=== PATIENT | female | born 1945 | race Caucasian/White ===

== ENCOUNTER 2016-11-25 09:03 | Emergency (ER) | payer MEDICARE ==
[2016-11-25 10:02] VITALS: BP 142/63
[2016-11-25] MEDS ORDERED: Ondansetron INJ* 2 MG/ML VIAL IV ONE (10:15)
[2016-11-25] MEDS ORDERED: NS 0.9% 1000 ML* 1,000 ML IV ONE (10:16)
--- NOTE | 2016-11-25 10:21 | UC ---
Abdominal Pain Female HPI - HPI Summary HPI Summary: 71 female presents accompanied by her complaining of nausea and vomiting since 3am this morning 11/25/16. Patient states she thinks she has vomited about 15-20 times with the last few hours being worse. She also is experiencing dry heaves. She denies any blood but has been tasting "bile and salt" after vomiting. Patient denies diarrhea at this time. LBM was this morning and was normal. She has not recently had any cold like symptoms however she babysat her grandson who stayed home from school on Wednesday due to a stomach bug. She has unable to eat or drink and feels as though she is a little dry and dehydrated. Denies going out to eat or having any food out of the ordinary over the past few days. She does not think this is food poisoning. Patient does not have any PMHx besides a pacemaker. Denied fever/chills, CHF, abdominal pain, bladder/bowel difficulty, chest pain, and difficulty breathing. Does not drink alcohol. - History of Current Complaint Chief Complaint: UCGI Stated Complaint: VOMITING Time Seen by Provider: 11/25/16 10:06 Hx Obtained From: Patient, Family/Rat Farmer - ?: No Onset/Duration: Sudden Onset - since 3 am this morning Timing: Constant Severity Initially: Moderate Severity Currently: Severe Location: Epigastric - not pain, just nausea Radiates: No Character: Other - nausea Aggravating Factor(s): Food Alleviating Factor(s): Nothing Associated Signs and Symptoms: Positive: Dizzy, Back Pain - straining from shoveling and vomiting/dry heaving, Decreased Appetite, Nausea, Vomiting. Negative: Diaphoresis, Fever, Cough, Chest Pain, Constipation, Blood in Stool, Urinary Symptoms, Diarrhea Allergies/Adverse Reactions: Allergies Allergy/AdvReac Type Severity Reaction Status Date / Time Sulfa Antibiotics Allergy Intermediate Rash Verified 11/25/16 10:02 Bee Venom Allergy Difficulty Unverified 11/25/16 10:02 Breathing/Wheezing CONTRAST AdvReac Unknown Rash Uncoded 11/25/16 10:02 PMH/Surg Hx/FS Hx/Imm Hx Endocrine History Of: Denies: Diabetes Cardiovascular History Of: Reports: Cardiac Disorders - pacemaker, Hypertension - CONTROLLED WITH MEDICATION Denies: Pacemaker/ICD, Myocardial Infarction Respiratory History Of: Denies: COPD - POSSIBLE MILD COPD d/t SECONDARY SMOKE EXPOSURE, Asthma GI/ History Of: Denies: Kidney Stones, Renal Disease Neurological History Of: Comment Only: CVA - HX MINI STROKES Cancer History Of: Denies: Breast Cancer - Surgical History Surgical History: Yes Surgery Procedure, Year, and Place: 3 C-SECTIONS,TOTAL HYSTERECTOMY, GALLBLADDER ,HERNIA,CATARACTS. TONSILECTOMY - as a child. pacemaker - Social History Alcohol Use: Rare Substance Use Type: None Smoking Status (MU): Never Smoked Tobacco Household Exposure Type: Cigarettes - Immunization History Most Recent Influenza Vaccination: FALL 2013 Review of Systems Constitutional: Chills, Fatigue Skin: Negative Eyes: Negative ENT: Negative Respiratory: Negative Cardiovascular: Negative Gastrointestinal: Vomiting Genitourinary: Negative Motor: Negative Neurovascular: Negative Musculoskeletal: Negative Neurological: Negative Psychological: Negative All Other Systems Reviewed And Are Negative: Yes Physical Exam Triage Information Reviewed: Yes Appearance: No Pain Distress, Well-Nourished, Ill-Appearing Vital Signs: Initial Vital Signs Temp 95.0 F 11/25/16 09:57 Pulse 72 11/25/16 09:57 Resp 16 11/25/16 09:57 BP 142/63 11/25/16 09:57 Pulse Ox 100 11/25/16 09:57 BP slightly elevated however patient has been vomiting Vital Signs Reviewed: Yes Eyes: Positive: Conjunctiva Clear ENT: Positive: Normal ENT inspection, Hearing grossly normal, Pharynx normal - tongue appears dry, TMs normal. Negative: Pharyngeal erythema, Nasal congestion , Nasal drainage Dental Exam: Normal Neck: Positive: Supple, Nontender, No Lymphadenopathy Respiratory: Positive: Chest non-tender, Lungs clear, Normal breath sounds, No respiratory distress Cardiovascular: Positive: RRR, Pulses Normal, Brisk Capillary Refill, Murmur:Sys :Grade _?_/ - pacemaker present, soft systolic murmur heard Abdomen Description: Positive: Nontender, No Organomegaly, Soft. Negative: Bruit, CVA Tenderness (R), CVA Tenderness (L), Distended, Guarding Bowel Sounds: Positive: Present Musculoskeletal Exam: Normal Neurological Exam: Normal Psychological Exam: Normal Skin Exam: Normal Re-Evaluation - Re-Evaluation First Eval Re-Evaluation Time: 11:20 Change: Improved - patient was feeling much better and had stopped vomiting after IV zofran and fluids Abd Pain Female Course/Dx - Course Course Of Treatment: Was given IV Zofran 4 mg and 1 bag of fluids. Patient was feeling much better. The nausea and vomiting had stopped. Patient will be sent home with zofran to take and told to drink plenty of fluids as this illness is most likely viral. - Differential Dx/Diagnosis Differential Diagnosis: Bowel Obstruction, Constipation, Other - gastroenteritis Provider Diagnoses: Viral Gastroenteritis Discharge - Discharge Plan Condition: Improved Disposition: HOME Patient Education Materials: Gastroenteritis (ED), Acute Nausea and Vomiting ( ED) Additional Instructions: Take medication as prescribed for the next 3 days as symptoms persist. Drink plenty of fluids and stay well hydrated. You may also take OTC tylenol or Ibuprofen to help with pain and soreness. If symptoms worsen or do not improve please return to UC. Follow up with PCP is recommended.
== END 2016-11-25 12:00 | disposition home or self-care (01) ==
LOC: UCCORT 09:03
DX: A08.4 Viral intestinal infection, unspecified (principal); I10 Essential (primary) hypertension; Z95.0 Presence of cardiac pacemaker; Z98.49 Cataract extraction status, unspecified eye; Z88.2 Allergy status to sulfonamides; Z91.041 Radiographic dye allergy status
CPT/HCPCS: 96361; 96374; 99212; G0463; J2405

== ENCOUNTER 2017-01-02 10:46 | Emergency (ER) | payer MEDICARE ==
[2017-01-02 11:24] VITALS: BP 158/59
--- NOTE | 2017-01-02 11:50 | UC ---
Throat Pain/Nasal Keyur HPI - HPI Summary HPI Summary: c/o a sinus infection. She has more congestion on the right side than the left side. She has a sore throat. She says she has to have an antibiotic because she has asthma and COPD. [ End ] - History of Current Complaint Chief Complaint: UCRespiratory Stated Complaint: SORE THROAT,SINUS,COUGH Time Seen by Provider: 01/02/17 11:35 Hx Obtained From: Patient ?: No Onset/Duration: Gradual Onset Severity: Mild Cough: Productive Associated Signs & Symptoms: Positive: Wheezing, Sinus Discomfort, Nasal Discharge - Epiglottits Risk Factors Epiglottis Risk Factors: Negative - Allergies/Home Medications Allergies/Adverse Reactions: Allergies Allergy/AdvReac Type Severity Reaction Status Date / Time Sulfa Antibiotics Allergy Intermediate Rash Verified 01/02/17 11:25 Bee Venom Allergy Difficulty Unverified 01/02/17 11:25 Breathing/Wheezing PMH/Surg Hx/FS Hx/Imm Hx Previously Healthy: Yes Endocrine History Of: Denies: Diabetes Cardiovascular History Of: Reports: Cardiac Disorders - pacemaker, Hypertension Denies: Pacemaker/ICD, Myocardial Infarction Respiratory History Of: Reports: COPD - "mild", Asthma GI/ History Of: Denies: Kidney Stones, Renal Disease Neurological History Of: Comment Only: CVA - HX MINI STROKES Cancer History Of: Denies: Breast Cancer - Surgical History Surgical History: Yes Surgery Procedure, Year, and Place: 3 C-SECTIONS,TOTAL HYSTERECTOMY, GALLBLADDER ,HERNIA,CATARACTS. TONSILECTOMY - as a child. pacemaker - Social History Occupation: Retired Lives: With Family Alcohol Use: Rare Substance Use Type: None Smoking Status (MU): Never Smoked Tobacco Household Exposure Type: Cigarettes - Immunization History Most Recent Influenza Vaccination: [id number] Most Recent Tetanus Shot: unknown Most Recent Pneumonia Vaccination: pneumovac and prevnar Review of Systems Constitutional: Fatigue Skin: Negative Eyes: Negative ENT: Negative, Ear Ache, Nasal Discharge, Other - sinus pressure Respiratory: Shortness Of Breath, Cough Cardiovascular: Negative Gastrointestinal: Negative Genitourinary: Negative Motor: Negative Neurovascular: Negative Musculoskeletal: Negative Neurological: Negative Psychological: Negative All Other Systems Reviewed And Are Negative: Yes Physical Exam Triage Information Reviewed: Yes Appearance: Well-Appearing, No Pain Distress, Well-Nourished Vital Signs: Initial Vital Signs Temp 97.5 F 01/02/17 11:19 Pulse 68 03/04/17 11:19 Resp 14 01/02/17 11:19 BP 158/59 01/02/17 11:19 Pulse Ox 97 01/02/17 11:19 Vital Signs Reviewed: Yes Eye Exam: Normal ENT Exam: Normal Dental Exam: Normal Neck exam: Normal Neck: Positive: 1 Respiratory Exam: Normal Respiratory: Positive: Chest non-tender, Wheezing - b/l lower lobes. Negative: No accessory muscle use, Respiratory distress, Crackles, Rhonchi Cardiovascular Exam: Normal Musculoskeletal Exam: Normal Neurological Exam: Normal Psychological Exam: Normal Skin Exam: Normal Throat Pain/Nasal Course/Dx - Differential Dx/Diagnosis Differential Diagnosis/HQI/PQRI: Pharyngitis, Sinusitis, URI Provider Diagnoses: COPD Exacerbation Discharge - Discharge Plan Condition: Good Disposition: HOME Prescriptions: Benzonatate CAP* [Tessalon CAP*] 100 mg PO TID PRN #20 cap PRN Reason: Cough Doxycycline (Monohydrate) [Doxycycline Monohydrate] 100 mg PO BID #20 cap Methylprednisolone [Medrol Dosepak 4 MG*] 0 mg PO .SEE RAFAELA INSTRUCTION #1 tab Patient Education Materials: COPD (Chronic Obstructive Pulmonary Disease) (ED) Referrals: Kvng Mendiola MD [Primary Care Provider] - 3 Days
== END 2017-01-02 12:09 | disposition home or self-care (01) ==
LOC: UCCORT 10:46
DX: J44.1 Chronic obstructive pulmonary disease with (acute) exacerbation (principal); Z88.2 Allergy status to sulfonamides; Z95.0 Presence of cardiac pacemaker; I10 Essential (primary) hypertension; J45.909 Unspecified asthma, uncomplicated; Z90.49 Acquired absence of other specified parts of digestive tract; Z77.22 Contact with and (suspected) exposure to environmental tobacco smoke (acute) (chronic)
CPT/HCPCS: 99212; G0463

== ENCOUNTER 2017-02-09 16:49 | Emergency (ER) | payer MEDICARE ==
[2017-02-09 18:01] VITALS: BP 133/67
--- NOTE | 2017-02-09 18:13 | UC ---
Lower Extremity/Ankle HPI - HPI Summary HPI Summary: Patient tripped and fell, pain in the ankle and lower leg, cant bear full weight , swelling and bruising noted. - History of Current Complaint Chief Complaint: UCLowerExtremity Stated Complaint: LEFT ANKLE INJURY Time Seen by Provider: 02/09/17 18:06 Hx Obtained From: Patient ?: No Onset/Duration: Sudden Onset, Lasting Days Severity Initially: Severe Severity Currently: Severe Aggravating Factor(s): Standing, Ambulation, Nothing Alleviating Factor(s): Rest, Ice Able to Bear Weight: Yes - Risk Factors Gout Risk Factors: Negative - Allergies/Home Medications Allergies/Adverse Reactions: Allergies Allergy/AdvReac Type Severity Reaction Status Date / Time Sulfa Antibiotics Allergy Intermediate Rash Verified 02/09/17 18:00 Bee Venom Allergy Difficulty Verified 02/09/17 18:00 Breathing/Wheezing Home Medications: Home Medications Ibuprofen TAB* [Advil TAB*] 400 mg PO Q8H PRN 02/09/17 [History Confirmed ] metFORMIN* [Glucophage 500 MG TAB *] 500 mg PO TID 02/09/17 [History Confirmed 02/09/17] PMH/Surg Hx/FS Hx/Imm Hx Previously Healthy: Yes Endocrine History Of: Denies: Diabetes Cardiovascular History Of: Reports: Cardiac Disorders - pacemaker, Hypertension , Pacemaker/ICD Denies: Myocardial Infarction Respiratory History Of: Reports: COPD - "mild", Asthma GI/ History Of: Denies: Kidney Stones, Renal Disease Neurological History Of: Comment Only: CVA - HX MINI STROKES Cancer History Of: Denies: Breast Cancer - Surgical History Surgical History: Yes Surgery Procedure, Year, and Place: 3 C-SECTIONS,TOTAL HYSTERECTOMY, GALLBLADDER ,HERNIA,CATARACTS. TONSILECTOMY - as a child. pacemaker - Family History Known Family History: Positive: Cardiac Disease, Hypertension - Social History Alcohol Use: Rare Substance Use Type: None Smoking Status (MU): Never Smoked Tobacco Household Exposure Type: Cigarettes - Immunization History Most Recent Influenza Vaccination: [id number] Most Recent Tetanus Shot: unknown Most Recent Pneumonia Vaccination: pneumovac and prevnar Review of Systems Constitutional: Negative Skin: Negative Eyes: Negative ENT: Negative Respiratory: Negative Cardiovascular: Negative Gastrointestinal: Negative Genitourinary: Negative Motor: Negative Neurovascular: Negative Musculoskeletal: Arthralgia, Decreased ROM, Edema, Myalgia Neurological: Negative Psychological: Negative All Other Systems Reviewed And Are Negative: Yes Physical Exam Triage Information Reviewed: Yes Appearance: Well-Appearing, Well-Nourished, Pain Distress Vital Signs: Initial Vital Signs Temp 97.8 F 02/09/17 17:57 Pulse 76 02/09/17 17:57 Resp 16 02/09/17 17:57 BP 133/67 02/09/17 17:57 Pulse Ox 96 02/09/17 17:57 Vital Signs Reviewed: Yes Eye Exam: Normal Eyes: Positive: Conjunctiva Clear ENT Exam: Normal ENT: Positive: Hearing grossly normal, Pharynx normal, TMs normal Dental Exam: Normal Neck exam: Normal Neck: Positive: Supple, Nontender, No Lymphadenopathy Respiratory Exam: Normal Respiratory: Positive: Chest non-tender, Lungs clear, Normal breath sounds Cardiovascular Exam: Normal Cardiovascular: Positive: RRR, No Murmur Abdominal Exam: Normal Abdomen Description: Positive: Nontender, No Organomegaly, Soft Bowel Sounds: Positive: Present Musculoskeletal: Positive: Strength Limited @ - left ankle, ROM Limited @ - in dorsi and plantar flexion, Edema @ - over lateral maleolus, Other: - pain in lower leg with palpation Neurological Exam: Normal Neurological: Positive: Alert, Muscle Tone Normal Psychological Exam: Normal Skin Exam: Normal Skin: Positive: Other - bruising over left ankle Lower Extremity Course/Dx - Course Course Of Treatment: hx obtained, exam performed, meds reviewed, xray obtained, patient took ibuprofen prior to arrival. no acute fracture noted, fausto and gel splint applied. educated on RICE and recovery - Differential Dx/Diagnosis Differential Diagnosis/HQI/PQRI: Contusion, Dislocation, Fracture (Closed), Sprain, Strain Provider Diagnoses: left ankle sprain and strain Discharge - Discharge Plan Condition: Stable Disposition: HOME Patient Education Materials: Ankle Sprain (ED), Ankle Exercises (GEN) Additional Instructions: 1. Rest and elevated foot as much as possible the next 48 hours. 2. Use the Fausto wrap for swelling reduction. 3. Gel Splint for support. 4. Activity as tolerated in pain free range of motion. 5. continue with Ibuprofen and tylenol for pain.
--- NOTE | 2017-02-09 19:05 | RAD ---
INDICATION: Lateral ankle pain and swelling after fall COMPARISON: None. TECHNIQUE: 3 views of the left ankle were obtained. FINDINGS: On the AP and oblique views of the ankle there is an obliquely oriented line along the diaphysis of the left metatarsal metaphysis. Remaining visualized bones are intact and properly aligned. The ankle mortise is symmetric. IMPRESSION: POTENTIAL MINIMALLY DISPLACED FRACTURE OF THE LEFT FIFTH METATARSAL DESCRIBED ABOVE. PLEASE CORRELATE TO PHYSICAL EXAMINATION.
== END 2017-02-09 19:35 | disposition home or self-care (01) ==
LOC: UCCORT 16:49
DX: S93.402A Sprain of unspecified ligament of left ankle, initial encounter (principal); W01.0XXA Fall on same level from slipping, tripping and stumbling without subsequent striking against object, initial encounter; Y93.9 Activity, unspecified; Y92.9 Unspecified place or not applicable; I10 Essential (primary) hypertension; Z95.0 Presence of cardiac pacemaker; Z86.73 Personal history of transient ischemic attack (TIA), and cerebral infarction without residual deficits; Z90.49 Acquired absence of other specified parts of digestive tract; Z88.2 Allergy status to sulfonamides; Z77.22 Contact with and (suspected) exposure to environmental tobacco smoke (acute) (chronic)
CPT/HCPCS: 99213; G0463

== ENCOUNTER 2017-03-15 11:54 | Inpatient (IN) | payer MEDICARE ==
[2017-03-15 13:47] LABS: Hematocrit 45 % (35-47); Mean Corpuscular HGB Conc 34 g/dl (31-36); Mean Corpuscular Hemoglobin 31 pg (27-31); Mean Corpuscular Volume 92 fL (80-97); Mean Platelet Volume 7 um3 (7.4-10.4); Red Blood Count 4.84 10^6/ul (4.0-5.4); Red Cell Distribution Width 15 % (10.5-15); White Blood Count 11.8 10^3/ul (3.5-10.8)
[2017-03-15] MEDS ORDERED: NS 0.9% 1000 ML* 1,000 ML IV ONE (13:49)
[2017-03-15] MEDS ORDERED: Morphine INJ* 4 MG/ML 1 ML SYRINGE IV ONE (13:49)
[2017-03-15] MEDS ORDERED: Ondansetron INJ* 2 MG/ML VIAL IV ONE (13:49)
[2017-03-15 13:54] LABS: Urine Bilirubin Negative (Negative); Urine Glucose Negative (Negative); Urine Nitrite Negative (Negative)
[2017-03-15 14:02] LABS: BUN/Creatinine Ratio 13.3 (8-20); C Reactive Protein 46.19 mg/L (< 5.00); Calcium 9.6 mg/dL (8.6-10.3); EGFR African American 86.7 (>60); EGFR Non-African American 67.4 (>60); Globulin 2.7 g/dL (2-4); Potassium 3.7 mmol/L (3.5-5.0); Total Bilirubin 1.7 mg/dL (0.2-1.0); Total Protein 6.7 g/dL (6.4-8.9)
[2017-03-15] MEDS: NS 0.9% 1000 ML* 1,000 ML IV ONE ×2 (14:12→18:57)
[2017-03-15] MEDS ORDERED: Iohexol 300* (CONTRAST) 10 ML SDV IV ONE (15:57)
--- NOTE | 2017-03-15 16:19 | RAD ---
INDICATION: Lower abdominal pain COMPARISON: External CT April 26, 2014 TECHNIQUE: Axial source images were obtained from the hemidiaphragms to the symphysis pubis following administration of oral and intravenous contrast. 121 mL Omnipaque 300 was utilized. Coronal and sagittal reconstructed images were acquired. Lung bases: The lung bases are clear. The heart is enlarged. There is pacemaker artifact Liver: The liver is enlarged with findings of hepatic steatosis. There is focal fatty infiltration near the falciform ligament, unchanged. There is no ductal dilatation. Gallbladder: Cholecystectomy. Spleen: The spleen is normal in size. There are no masses. Pancreas: There is no focal pancreatic mass or ductal dilatation. Adrenal glands: There is no evidence of adrenal mass. Kidneys: The kidneys are normal in size and position. There are prompt nephrograms and there is prompt excretion bilaterally. There are no renal parenchymal masses. There is no evidence of nephrolithiasis. Adenopathy: There is no evidence of adenopathy by size criteria. Fluid collections: There is a small amount of free fluid in the dependent portion of the pelvis. Vessels:There are no significant atherosclerotic changes involving the aorta. There is no focal aneurysm. The iliac vessels are normal in caliber. The IVC appears normal. GI tract: The upper GI tract is unremarkable. There is liquid and formed stool throughout the colon perhaps with mild bowel wall edema of the distal sigmoid colon. There are scant diverticula. There is chronic mesenteric stranding Pelvic organs: There is hysterectomy. There is no adnexal mass. Bladder: There are no bladder masses. Abdominal and pelvic soft tissues: The extraperitoneal abdominal and pelvic soft tissues appear normal.. Osseous structures: There are no acute osseous findings. Other: None IMPRESSION: 1. LIQUID AND SOLID STOOL THROUGHOUT THE COLON WITH MESENTERIC STRANDING AND A SMALL AMOUNT OF FREE FLUID AT THE LEVEL OF THE DISTAL SIGMOID COLON. THE FINDINGS MAY BE RELATED TO A MILD COLITIS. SIMILAR FINDINGS WERE PRESENT PREVIOUSLY. 2. HEPATOMEGALY WITH HEPATIC STEATOSIS. 3. CHOLECYSTECTOMY. HYSTERECTOMY.
[2017-03-15] MEDS ORDERED: Ciprofloxacin 400MG IVPREMIX(* 400 MG/200 ML BAG IVPB ONE (16:40)
[2017-03-15] MEDS ORDERED: metroNIDAZOLE IV 500 MG/100ML* 500 MG/100 ML BAG IVPB ONE (16:40)
[2017-03-15] MEDS ORDERED: Magnesium Hydroxide LIQ* 30 ML UDC PO ONE (18:42)
[2017-03-15] MEDS ORDERED: ALPRAZolam TAB* 0.5 MG PO PRN (18:43)
[2017-03-15] MEDS ORDERED: Omeprazole CAP* 20 MG PO ONE (18:48)
--- NOTE | 2017-03-15 18:59 | ADMNOTE ---
Subjective Date of Service: 03/15/17 Interval History: ADMISSION HISTORY AND PHYSICAL EXAM: Allergies Allergy/AdvReac Type Severity Reaction Status Date / Time Sulfa Antibiotics Allergy Intermediate Rash Verified 02/09/17 18:00 Bee Venom Allergy Difficulty Verified 02/09/17 18:00 Breathing/Wheezing Home Medications Medication Instructions Recorded Confirmed Type ALPRAZolam TAB* [Xanax TAB*] 1 tab PO Q8H PRN 02/01/14 02/09/17 History Aspirin EC Low Dose* [Ecotrin EC 1 tab PO DAILY 02/01/14 02/09/17 History Low Dose*] Meclizine TAB* [Antivert TAB*] 2 tab PO BID 02/01/14 02/09/17 History Ranitidine TAB (NF) [Zantac TAB 2 - 4 tab PO DAILY 02/01/14 02/09/17 History (NF)] Gemfibrozil TAB* [Lopid TAB*] 2 tab PO DAILY 02/18/15 02/09/17 History Hydrochlorothiazide TAB* 0.5 tab PO DAILY 02/18/15 02/09/17 History [Hydrodiuril TAB*] Naproxen TAB* [Naprosyn TAB*] 2 tab PO BID PRN 02/18/15 02/09/17 History Biotin [Biotin/Maximum Strength] 1 tab PO DAILY 12/02/15 02/09/17 History Cholecalciferol TAB* [Vitamin D 1 tab PO DAILY 12/02/15 02/09/17 History TAB*] [place]-3 Fatty Acids (Nf) [Fish Oil 1 tab PO BID 12/02/15 02/09/17 History (NF)] Polyethylene Glycol 3350* 17 gm PO DAILY PRN 12/02/15 02/09/17 History [Miralax*] Vitamin B Complex TAB* [Complex 1 tab PO DAILY 12/02/15 02/09/17 History B-100*] Ascorbic Acid [Vitamin C] 1 tab PO DAILY 12/26/15 02/09/17 History Crbphiy-Etbodsusn-Phyh [Calcium & 1 tab PO DAILY 12/26/15 02/09/17 History Magnesium + Zin 334-134-5 mg] Phenergan 1 teasp PO SEE INSTRUCTIONS PRN 12/26/15 02/09/17 History Diphenoxylat/Atrop 2.5-0.025M* 1 tab PO TID 04/08/16 02/09/17 History [Lomotil TAB*] Pravastatin Sodium [Pravachol] 40 mg PO DAILY 04/08/16 02/09/17 History Amlodipine Besylate [Amlodipine 2.5 mg PO BID 04/09/16 02/09/17 History Besylate-] Ibuprofen TAB* [Advil TAB*] 400 mg PO Q8H PRN 02/09/17 02/09/17 History metFORMIN* [Glucophage 500 MG TAB 500 mg PO TID 02/09/17 02/09/17 History *] HPI: Patient developed LLQ pain yesterday, some brief episodes of chills and sweats. She did not take her temperature at home. No emesis. She is very concerned about her constipations, states she last had a "good" BM 5 days ago. Family History: Findings - unremarkable. Social History: Findings - Lives with her who is her SDM. Never smoked , no alcohol abuse. Past Medical History: Findings - Acoustic neuroma RT 2013. Pacemaker is MRI- safe. TIA 1997. Ischemic colitis 2006. Hysterectomy, cataract surgery, cholecystectomy. Review of Systems - Measurements Intake and Output: Intake and Output Last 24 Hours 03/13/17 03/14/17 03/15/17 03/16/17 06:59 06:59 06:59 06:59 Intake Total 1000 Balance 1000 Weight 200 lb Intake: IV Fluids 1000 - Review of Systems Constitutional Symptoms: Negative: Weight Gain, Weight Loss, Weakness, Fatigue, Fever, Night Sweats, Unexplained Falls, Other Dermatology: Positive: Normal HEENT: Positive: Change in Hearing - Acoustic neuroma s/p RT Eyes: Positive: Normal Thyroid: Positive: Normal Pulmonary: Positive: COPD Gastroenterology: Positive: Abdominal Pain Genital - Urinary: Positive: Normal Musculoskeletal: Negative: Joint Pain, Joint Stiffness, Arthritis, Osteoporosis, Low Back Pain , Sciatica, Joint Deformities, Kyphoscoliosis, Other Endocrinology: Positive: Other - Not clear why she is on metformin. Hematologic/Lymphatic: Negative: Anemia, Easy Brusing, Hx Leukemia, Hx Lymphoma, Use of Anticoagulant, Use of Antiplatelet Drugs, Other Neurology: Positive: Normal Psychiatry: Positive: Normal Allergic/Immunologic: Negative: Hx Anaphylaxis, Hx Angioedema, Hx Environmental, Hx Seasonal, Athsma, Hx HIV, Immunocompromise, Swollen Glands LymphNodes, Other Objective Active Medications: Alprazolam (Xanax Tab*) 0.5 mg PO Q8H PRN PRN Reason: ANXIETY Aspirin (Aspirin Ec Low Dose*) mg PO DAILY [facility] Cholecalciferol (Vitamin D Tab*) 1,000 units PO DAILY [facility] Enoxaparin Sodium (Lovenox(*)) 40 mg SUBCUT Q24H [facility] Ciprofloxacin/Dextrose (Cipro 400 Mg Ivpremix(*)) 400 mg in 200 mls @ 200 mls/ hr IVPB Q12H [facility] Metronidazole/Sodium Chloride (Flagyl 500 Mg Ivpb*) 500 mg in 100 mls @ 100 mls /hr IVPB Q8H [facility] Omeprazole (Prilosec Cap*) 20 mg PO DAILY@0600 [facility] Vital Signs 03/15/17 03/15/17 03/15/17 11:56 11:59 12:30 Temperature 97.5 F 98.9 F Pulse Rate 80 80 75 Respiratory 20 20 Rate Blood Pressure 191/81 191/81 122/88 (mmHg) O2 Sat by Pulse 99 98 96 Oximetry 03/15/17 03/15/17 03/15/17 13:00 13:30 13:40 Temperature Pulse Rate 68 73 67 Respiratory Rate Blood Pressure 131/69 139/67 (mmHg) O2 Sat by Pulse 93 96 95 Oximetry 03/15/17 03/15/17 03/15/17 13:47 14:00 14:12 Temperature Pulse Rate 67 Respiratory 18 Rate Blood Pressure 152/101 112/95 (mmHg) O2 Sat by Pulse 96 Oximetry 03/15/17 03/15/17 14:30 15:00 Temperature Pulse Rate 65 65 Respiratory Rate Blood Pressure 136/76 131/61 (mmHg) O2 Sat by Pulse 95 95 Oximetry Oxygen Devices in Use Now: None Appearance: Alert, partly up on ED stretcher. In good spirits but somewhat anxious. C/O abd pain/constipation. Eyes: No Scleral Icterus Ears/Nose/Mouth/Throat: Clear Oropharnyx, Mucous Membranes Moist Neck: NL Appearance and Movements; NL JVP, No Thyroid Enlargement, Masses Respiratory: Symmetrical Chest Expansion and Respiratory Effort, Clear to Auscultation, Clear to Percussion Cardiovascular: NL Sounds; No Murmurs; No JVD, RRR, No Edema, - Abdominal: - - mod diffuse abd tenderness, more marked LLQ. Diminished BS (had IV morphine here). Extremities: No Edema, No Clubbing, Cyanosis, - Skin: No Rash or Ulcers, No Nodules or Sclerosis, - Neurological: Alert and Oriented x 3, NL Sensation Result Diagrams: 03/15/17 13:38 03/15/17 13:38 Assess/Plan/Problems-Billing Assessment: - Patient Problems (1) Diverticulitis Current Visit: Yes Status: Acute Comment: Only scant divertiucla seen on CT scan. Not clear if this is diverticulitis, ischemic colitis, or only constipation. I ordered cipro/metro. Consider discharge on oral cipro/metro for 10-14 days. (2) HTN (hypertension) Current Visit: Yes Status: Acute Code(s): I10 - ESSENTIAL (PRIMARY) HYPERTENSION SNOMED Code(s): 33470074 Comment: Continue amlodipine, hold thiazide. (3) Diabetes Current Visit: Yes Status: Acute Code(s): E11.9 - TYPE 2 DIABETES MELLITUS WITHOUT COMPLICATIONS SNOMED Code(s): 62423558 Comment: Not clear if diabetes is the dx associated with her metformin. Note A1C< 6% 09/2016. FS glucose daily with parameters. (4) Constipation Current Visit: Yes Status: Acute Code(s): K59.00 - CONSTIPATION, UNSPECIFIED SNOMED Code(s): 15209935 Comment: MOM 60 ml 03/15, PEG 34 gm bid start PM 03/15. Pt took 3/4 bottle mag citrate at home with no results.
[2017-03-15] MEDS ORDERED: Albuterol/Ipratropium NEB.SOL* Albuterol 2.5 MG/Ipratropium 0.5 MG 3 ML INH PRN (19:13)
[2017-03-15] MEDS: Morphine INJ* 4 MG/ML 1 ML SYRINGE IV PRN ×2 (19:19→23:45)
[2017-03-15] MEDS: Polyethylene Glycol 3350* 17 GM PACKET PO SCH (20:37)
[2017-03-15] MEDS: Enoxaparin(*) 40 MG/0.4 ML SYR SUBCUT SCH (20:38)
[2017-03-15] MEDS: Mometasone/Formoter 200/5 MDI INH SCH (21:04)
[2017-03-15] MEDS: metroNIDAZOLE IV 500 MG/100ML* 500 MG/100 ML BAG IVPB SCH (21:50)
--- NOTE | 2017-03-15 22:09 | ED ---
Rocio Pool Michael, scribed for Bennie Alex MD on 03/15/17 at 1447 . Abdominal Pain/Female - HPI Summary HPI Summary: 72 y/o female comes to the ED presenting with constant bilateral LQ abd pain that started one day ago. The abd pain radiates to her back. Pt with hx of constipation and states that she has only passed a few "pellets" in the last 6 days. She also c/o nausea, and she has only had half a cup of coffee today due to loss of appetite. Nothing alleviates her symptoms including magnesium- citrate and miralax, which normally alleviates the constipation. She denies CP, SOB, and LOC. The PMHx is significant for diverticulitis, ischemic colitis, TIA , HTN, and vertigo. The pt had a perforated diverticulitis in 2012, and she was admitted to the hospital and treated with abx for 7 days. - History of Current Complaint Chief Complaint: EDAbdPain Stated Complaint: constipation-2WKS Time Seen by Provider: 03/15/17 13:08 Pain Intensity: 7 Allergies/Adverse Reactions: Allergies Allergy/AdvReac Type Severity Reaction Status Date / Time Sulfa Antibiotics Allergy Intermediate Rash Verified 02/09/17 18:00 Bee Venom Allergy Difficulty Verified 02/09/17 18:00 Breathing/Wheezing PMH/Surg Hx/FS Hx/Imm Hx Endocrine/Hematology History: Denies: Hx Diabetes Cardiovascular History: Reports: Hx Hypercholesterolemia, Hx Hypertension, Hx Pacemaker/ICD Denies: Hx Angina, Hx Coronary Artery Disease, Hx Myocardial Infarction, Hx Valvular Heart Disease Respiratory History: Reports: Hx Asthma, Hx Chronic Obstructive Pulmonary Disease (COPD) - "mild" GI History: Reports: Other GI Disorders - HIATAL HERNIA History: Denies: Hx Dialysis, Hx Kidney Stones, Hx Renal Disease Sensory History: Denies: Hx Hearing Aid Psychiatric History: Denies: Hx Panic Disorder - Cancer History Cancer Type, Location and Year: 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 TONSILECTOMY - as a child. pacemaker Infectious Disease History: No Infectious Disease History: Denies: Hx Clostridium Difficile, Hx Hepatitis, Hx Human Immunodeficiency Virus (HIV), Hx of Known/Suspected MRSA, Hx Shingles, Hx Tuberculosis, Hx Known/ Suspected VRE, Hx Known/Suspected VRSA, History Other Infectious Disease, Traveled Outside the [place] in Last 30 Days - Family History Known Family History: Positive: Cardiac Disease, Hypertension - Social History Alcohol Use: None Substance Use Type: Reports: None Smoking Status (MU): Never Smoked Tobacco Review of Systems Positive: Abdominal Pain, Nausea, Other - constipation All Other Systems Reviewed And Are Negative: Yes Physical Exam Triage Information Reviewed: Yes Vital Signs On Initial Exam: Initial Vitals Temp Pulse Resp BP Pulse Ox 97.5 F 80 20 191/81 99 03/15/17 11:56 03/15/17 11:56 03/15/17 11:56 03/15/17 11:56 03/15/17 11:56 Vital Signs Reviewed: Yes Appearance: Positive: Well-Appearing, No Pain Distress, Well-Nourished Skin: Positive: Warm, Skin Color Reflects Adequate Perfusion, Dry Head/Face: Positive: Normal Head/Face Inspection Eyes: Positive: EOMI, BRYANT, Conjunctiva Clear ENT: Positive: Hearing grossly normal, Pharynx normal Neck: Positive: Supple, Nontender Respiratory/Lung Sounds: Positive: Clear to Auscultation, Breath Sounds Present. Negative: Rales, Rhonchi, Wheezes Cardiovascular: Positive: RRR, Pulses are Symmetrical in both Upper and Lower Extremities. Negative: Murmur, Rub Abdomen Description: Positive: No Organomegaly, Soft, Other: - + ttp of b/l lower abdomen. Negative: CVA Tenderness (R), CVA Tenderness (L), Distended, Guarding, Peritoneal Signs Bowel Sounds: Positive: Present Musculoskeletal: Positive: Other - lower back-paraspinal tenderness at the level of L3-L5 Neurological: Positive: Sensory/Motor Intact, Alert, Oriented to Person Place, Time, Normal Gait. Negative: Cerebellar Dysfunction Psychiatric: Positive: Affect/Mood Appropriate - [place] Coma Scale Coma Scale Total: 15 Diagnostics - Vital Signs Vital Signs Temp Pulse Resp BP Pulse Ox 03/15/17 11:59 98.9 F 80 20 191/81 98 03/15/17 11:56 97.5 F 80 20 191/81 99 - Laboratory Lab Results: Lab Results 03/15/17 03/15/17 03/15/17 Range/Units 13:38 13:38 13:38 WBC 11.8 H (3.5-10.8) 10^3/ul RBC 4.84 (4.0-5.4) 10^6/ul Hgb 15.0 (12.0-16.0) g/dl Hct 45 (35-47) % MCV 92 (80-97) fL MCH 31 (27-31) pg MCHC 34 (31-36) g/dl RDW 15 (10.5-15) % Plt Count 275 (150-450) 10^3/ul MPV 7 L (7.4-10.4) um3 Neut % (Auto) 80.6 (38-83) % Lymph % (Auto) 10.2 L (25-47) % [place] % (Auto) 7.5 (1-9) % Eos % (Auto) 1.1 (0-6) % Baso % (Auto) 0.6 (0-2) % Absolute Neuts (auto) 9.5 H (1.5-7.7) 10^3/ul Absolute Lymphs (auto) 1.2 (1.0-4.8) 10^3/ul Absolute Monos (auto) 0.9 H (0-0.8) 10^3/ul Absolute Eos (auto) 0.1 (0-0.6) 10^3/ul Absolute Basos (auto) 0.1 (0-0.2) 10^3/ul Absolute Nucleated RBC 0.02 10^3/ul Nucleated RBC % 0.2 INR (Anticoag Therapy) 0.90 (0.89-1.11) APTT 28.6 (26.0-36.3) seconds Sodium 139 (133-145) mmol/L Potassium 3.7 (3.5-5.0) mmol/L Chloride 105 (101-111) mmol/L Carbon Dioxide 26 (22-32) mmol/L Anion Gap 8 (2-11) mmol/L BUN 11 (6-24) mg/dL Creatinine 0.83 (0.51-0.95) mg/dL Est GFR ( Amer) 86.7 (>60) Est GFR (Non-Af Amer) 67.4 (>60) BUN/Creatinine Ratio 13.3 (8-20) Glucose 104 H (70-100) mg/dL Lactic Acid (0.5-2.0) mmol/L Calcium 9.6 (8.6-10.3) mg/dL Total Bilirubin 1.70 H (0.2-1.0) mg/dL AST 24 (13-39) U/L ALT 22 (7-52) U/L Alkaline Phosphatase 63 (34-104) U/L C-Reactive Protein 46.19 H (< 5.00) mg/L Total Protein 6.7 (6.4-8.9) g/dL Albumin 4.0 (3.2-5.2) g/dL Globulin 2.7 (2-4) g/dL Albumin/Globulin Ratio 1.5 (1-3) Lipase 15 (11.0-82.0) U/L Urine Color Urine Appearance Urine pH (5-9) Ur Specific [place] (1.010-1.030) Urine Protein (Negative) Urine Ketones (Negative) Urine Blood (Negative) Urine Nitrate (Negative) Urine Bilirubin (Negative) Urine Urobilinogen (Negative) Ur Leukocyte Esterase (Negative) Urine Glucose (Negative) 03/15/17 03/15/17 Range/Units 13:38 13:45 WBC (3.5-10.8) 10^3/ul RBC (4.0-5.4) 10^6/ul Hgb (12.0-16.0) g/dl Hct (35-47) % MCV (80-97) fL MCH (27-31) pg MCHC (31-36) g/dl RDW (10.5-15) % Plt Count (150-450) 10^3/ul MPV (7.4-10.4) um3 Neut % (Auto) (38-83) % Lymph % (Auto) (25-47) % [place] % (Auto) (1-9) % Eos % (Auto) (0-6) % Baso % (Auto) (0-2) % Absolute Neuts (auto) (1.5-7.7) 10^3/ul Absolute Lymphs (auto) (1.0-4.8) 10^3/ul Absolute Monos (auto) (0-0.8) 10^3/ul Absolute Eos (auto) (0-0.6) 10^3/ul Absolute Basos (auto) (0-0.2) 10^3/ul Absolute Nucleated RBC 10^3/ul Nucleated RBC % INR (Anticoag Therapy) (0.89-1.11) APTT (26.0-36.3) seconds Sodium (133-145) mmol/L Potassium (3.5-5.0) mmol/L Chloride (101-111) mmol/L Carbon Dioxide (22-32) mmol/L Anion Gap (2-11) mmol/L BUN (6-24) mg/dL Creatinine (0.51-0.95) mg/dL Est GFR ( Amer) (>60) Est GFR (Non-Af Amer) (>60) BUN/Creatinine Ratio (8-20) Glucose (70-100) mg/dL Lactic Acid 0.9 (0.5-2.0) mmol/L Calcium (8.6-10.3) mg/dL Total Bilirubin (0.2-1.0) mg/dL AST (13-39) U/L ALT (7-52) U/L Alkaline Phosphatase (34-104) U/L C-Reactive Protein (< 5.00) mg/L Total Protein (6.4-8.9) g/dL Albumin (3.2-5.2) g/dL Globulin (2-4) g/dL Albumin/Globulin Ratio (1-3) Lipase (11.0-82.0) U/L Urine Color Yellow Urine Appearance Clear Urine pH 7.0 (5-9) Ur Specific [place] 1.006 L (1.010-1.030) Urine Protein Negative (Negative) Urine Ketones Negative (Negative) Urine Blood Negative (Negative) Urine Nitrate Negative (Negative) Urine Bilirubin Negative (Negative) Urine Urobilinogen Negative (Negative) Ur Leukocyte Esterase Negative (Negative) Urine Glucose Negative (Negative) Result Diagrams: 03/15/17 13:38 03/15/17 13:38 Lab Statement: Any lab studies that have been ordered have been reviewed, and results considered in the medical decision making process. - CT CT ABD/PEL CT Interpretation: Positive (See Comments) - 1. LIQUID AND SOLID STOOL THROUGHOUT THE COLON WITH MESENTERIC STRANDING AND A SMALL AMOUNT OF FREE FLUID AT THE LEVEL OF THE DISTAL SIGMOID COLON. THE FINDINGS MAY BE RELATED TO A MILD COLITIS. SIMILAR FINDINGS WERE PRESENT PREVIOUSLY. 2. HEPATOMEGALY WITH HEPATIC STEATOSIS. [facility] 3. CHOLECYSTECTOMY. HYSTERECTOMY. CT Interpretation Completed By: Radiologist Abdominal Pain Fem Course/Dx - Course Course Of Treatment: Discussed patient care with Dr. Menezes (Surgery) at 1723 : He will evaluate patient. Dr. Kidd, hospitalist, accepts the patient as an admission. - Diagnoses Differential Diagnosis: Positive: Abdominal Aortic Aneurysm Provider Diagnoses: Colitis, Abdominal pain Discharge - Discharge Plan Condition: Stable Disposition: ADMITTED TO [facility] Discharge Disposition Comment: Dr. Kidd accepts the patient as an admission The documentation as recorded by the Rocio beaulieu Michael accurately reflects the service I personally performed and the decisions made by Abi hyman Afoma Frances, MD.
--- NOTE | 2017-03-15 22:33 | CONS ---
CONSULTATION REPORT: DATE OF CONSULT: 03/15/17 PRIMARY CARE PROVIDER: Kvng Mendiola MD from GI. REFERRING PROVIDER: Bennie Alex MD, emergency room physician. REASON FOR CONSULTATION: Left lower quadrant abdominal pain. HISTORY OF PRESENT ILLNESS: Ms. Esther Bazan is a 72-year-old woman with known diverticular disease who presented to the emergency room with about several days of constipation without abdominal pain and now development of left lower quadrant abdominal pain since yesterday. She has had no fevers, shakes, or chills. She has had no blood per rectum and she has been passing a small amount of flatus. She has a known history of diverticular disease and states that she was admitted and treated in [facility] back in 2012 for 7 days with IV antibiotics and with possible small abscess. There does not appear to have been any surgical intervention or percutaneous drainage done at that time, but we do not have these records. More recently, she has undergone a colonoscopy with Dr. Mendiola here at [facility]. This was done in 2014 and showed left colonic diverticulosis with muscular hypertrophy in the sigmoid and descending colon consistent with chronic diverticular disease without acute inflammation. She states she has not had problems with diverticulitis since 2013. PAST MEDICAL HISTORY: 1. Diverticular disease. 2. History of left-sided ischemic colitis, 2006. 3. Obesity. 4. Noninsulin-dependent diabetes. 5. Hypercholesterolemia. 6. Hypertension. 7. Anxiety. PAST SURGICAL HISTORY: 1. Cholecystectomy. 2. Hysterectomy with bilateral salpingo-oophorectomy. 3. Appendectomy. 4. Pacemaker insertion. MEDICATIONS: Include: 1. Metformin. 2. Ranitidine. 3. Pravachol. 4. MiraLAX. 5. Meclizine. 6. Hydrochlorothiazide. 7. Gemfibrozil. 8. Lomotil p.r.n. 9. Aspirin. 10. Amlodipine. 11. Xanax p.r.n. ALLERGIES: She is allergic to SULFA and BEE VENOM. SOCIAL HISTORY: She lives with her in [facility]. Does not use tobacco or alcohol. REVIEW OF SYSTEMS: Otherwise unremarkable. PHYSICAL EXAM: Vital signs: Temperature 98.9, pulse 65, and blood pressure 131 /61. General: She is a well-developed, well-nourished overweight female, in no apparent distress. Awake, alert, conversant, and quite pleasant. Lungs: Clear to auscultation with normal respiratory effort. Heart: Has a regular rate and rhythm without murmurs, rubs, or gallops. Abdomen: Soft and nondistended. She has a well-healed low midline incision without hernia. The scar is quite wide. She has normoactive bowel sounds throughout. She has some tenderness in the left lower quadrant with some voluntary guarding. No rebound , guarding, or peritoneal signs and no generalized peritonitis. DIAGNOSTIC STUDIES/LAB DATA: Laboratory workup included a white blood cell count of 11.8. Electrolytes; BUN and creatinine were all within normal limits. She has a lactic acid of 0.9. C-reactive protein of 46. She underwent a CT scan of the abdomen and pelvis. I did review these images. Appears to be stool throughout the entire colon with some mesenteric stranding, a small amount of free fluid at the level of the distal sigmoid colon, possibly consistent with colitis and/or diverticulitis. IMPRESSION: Left lower quadrant abdominal pain with above CT scan with a history of diverticular disease. She also has problem with constipation. At this point, she does not have peritonitis or signs of sepsis. May have some mild diverticulitis. She has also had problems with constipation. I am not certain how much it is related to her discomfort as well as her diverticular disease. She does not require surgical intervention at this point and/or surgical admission and I will defer to emergency room physician regarding inpatient versus outpatient antibiotic management, which I do feel is probably indicated in this situation. If she is admitted, we will follow her along with the hospitalist service and consultants. I discussed all of this with the patient and her at the bedside today. CC: [facility]; Kvng Mendiola MD* [id number]/[facility] #: [id number] ALEX
[2017-03-16] MEDS: Ondansetron INJ* 2 MG/ML VIAL IV PRN ×2 (00:16→08:15)
[2017-03-16] MEDS: metroNIDAZOLE IV 500 MG/100ML* 500 MG/100 ML BAG IVPB SCH ×3 (03:43→20:32)
[2017-03-16] MEDS: Morphine INJ* 4 MG/ML 1 ML SYRINGE IV PRN (04:12)
[2017-03-16] MEDS: Ciprofloxacin 400MG IVPREMIX(* 400 MG/200 ML BAG IVPB SCH ×2 (04:58→17:37)
[2017-03-16] MEDS: Cholecalciferol TAB* 1000 UNITS PO SCH (08:13)
[2017-03-16] MEDS: Omeprazole CAP* 20 MG PO SCH (08:14)
[2017-03-16] MEDS: Aspirin EC Low Dose* 81 MG TAB.EC PO SCH (08:14)
[2017-03-16] MEDS: Polyethylene Glycol 3350* 17 GM PACKET PO SCH ×2 (08:14→20:28)
[2017-03-16] MEDS: oxyCODONE TAB* 5 MG TAB PO PRN ×3 (08:15→20:43)
[2017-03-16] MEDS: Mometasone/Formoter 200/5 MDI INH SCH ×2 (08:27→20:34)
--- NOTE | 2017-03-16 09:59 | PN ---
Subjective Date of Service: 03/16/17 Interval History: Little or no subjective change. No BM yet. This is a major concern of her, also the pain. She did receive IV morphine at 0412 hrs today. Family History: Findings - unremarkable. Social History: Findings - Lives with her who is her SDM. Never smoked , no alcohol abuse. Past Medical History: Findings - Acoustic neuroma RT 2013. Pacemaker is MRI- safe. TIA 1997. Ischemic colitis 2006. Hysterectomy, cataract surgery, cholecystectomy. Objective Active Medications: Albuterol/Ipratropium (Duoneb (Albuterol 2.5 Mg/Ipratropium 0.5 Mg)) 1 neb INH Q4H PRN PRN Reason: SOB/WHEEZING Alprazolam (Xanax Tab*) 0.5 mg PO Q8H PRN PRN Reason: ANXIETY Aspirin (Aspirin Ec Low Dose*) 81 mg PO DAILY [facility] Last Admin: 03/16/17 08:14 Dose: 81 mg Cholecalciferol (Vitamin D Tab*) 1,000 units PO DAILY [facility] Last Admin: 03/16/17 08:13 Dose: 1,000 units Enoxaparin Sodium (Lovenox(*)) 40 mg SUBCUT Q24H [facility] Last Admin: 03/15/17 20:38 Dose: 40 mg Ciprofloxacin/Dextrose (Cipro 400 Mg Ivpremix(*)) 400 mg in 200 mls @ 200 mls/ hr IVPB Q12H [facility] Last Admin: 03/16/17 04:58 Dose: 200 mls/hr Metronidazole/Sodium Chloride (Flagyl 500 Mg Ivpb*) 500 mg in 100 mls @ 100 mls /hr IVPB Q8H [facility] Last Admin: 03/16/17 03:43 Dose: 100 mls/hr Mometasone Furoate/Formoterol Fumar (Dulera 200/5 Mdi*) 2 puff INH BID BARRY PRN Reason: Protocol Last Admin: 03/16/17 08:27 Dose: 2 puff Morphine Sulfate (Morphine Inj (Syringe)*) 3 mg IV Q3H PRN PRN Reason: PAIN - SEVERE Last Admin: 03/16/17 04:12 Dose: 3 mg Omeprazole (Prilosec Cap*) 20 mg PO 0700 [facility] Last Admin: 03/16/17 08:14 Dose: 20 mg Ondansetron HCl (Zofran Inj*) 4 mg IV Q6H PRN PRN Reason: NAUSEA Last Admin: 03/16/17 08:15 Dose: 4 mg Oxycodone HCl (Roxycodone Tab*) 5 mg PO Q4H PRN PRN Reason: PAIN - MODERATE TO SEVERE Last Admin: 03/16/17 08:15 Dose: 5 mg Polyethylene Glycol/Electrolytes (Miralax*) 34 gm PO 0800,2100 BARRY Last Admin: 03/16/17 08:14 Dose: 34 gm Vital Signs 03/15/17 03/15/17 03/15/17 18:30 19:00 19:09 Temperature 98.2 F Pulse Rate 67 67 66 Respiratory 18 Rate Blood Pressure 155/81 176/65 (mmHg) O2 Sat by Pulse 93 94 96 Oximetry 03/15/17 03/15/17 03/15/17 19:19 20:00 20:19 Temperature Pulse Rate 76 Respiratory 18 18 16 Rate Blood Pressure (mmHg) O2 Sat by Pulse 96 Oximetry 03/15/17 03/15/17 03/16/17 23:45 23:47 00:45 Temperature 99.4 F Pulse Rate 66 Respiratory 18 16 16 Rate Blood Pressure 151/69 (mmHg) O2 Sat by Pulse 96 Oximetry 03/16/17 03/16/17 03/16/17 04:12 04:24 05:12 Temperature 98.7 F Pulse Rate 72 Respiratory 18 16 16 Rate Blood Pressure 151/51 (mmHg) O2 Sat by Pulse 95 Oximetry 03/16/17 03/16/17 03/16/17 07:14 08:15 08:29 Temperature 98.6 F Pulse Rate 69 68 Respiratory 16 15 17 Rate Blood Pressure 145/62 (mmHg) O2 Sat by Pulse 95 97 Oximetry Oxygen Devices in Use Now: None Appearance: Alert, partly up in bed. In fair spirits. Looks comfortable at rest. Eyes: No Scleral Icterus Neck: NL Appearance and Movements; NL JVP, No Thyroid Enlargement, Masses Abdominal: - - Soft. Mild to mod diffuse tenderness, worse in LLQ. Diminished BS. Extremities: No Edema, No Clubbing, Cyanosis, - Skin: No Rash or Ulcers, No Nodules or Sclerosis, - Neurological: Alert and Oriented x 3, NL Sensation Result Diagrams: 03/15/17 13:38 03/15/17 13:38 Additional Lab and Data: Lab Results 03/15/17 03/15/17 03/15/17 Range/Units 13:38 13:38 13:38 WBC 11.8 H (3.5-10.8) 10^3/ul RBC 4.84 (4.0-5.4) 10^6/ul Hgb 15.0 (12.0-16.0) g/dl Hct 45 (35-47) % MCV 92 (80-97) fL MCH 31 (27-31) pg MCHC 34 (31-36) g/dl RDW 15 (10.5-15) % Plt Count 275 (150-450) 10^3/ul MPV 7 L (7.4-10.4) um3 Neut % (Auto) 80.6 (38-83) % Lymph % (Auto) 10.2 L (25-47) % [place] % (Auto) 7.5 (1-9) % Eos % (Auto) 1.1 (0-6) % Baso % (Auto) 0.6 (0-2) % Absolute Neuts (auto) 9.5 H (1.5-7.7) 10^3/ul Absolute Lymphs (auto) 1.2 (1.0-4.8) 10^3/ul Absolute Monos (auto) 0.9 H (0-0.8) 10^3/ul Absolute Eos (auto) 0.1 (0-0.6) 10^3/ul Absolute Basos (auto) 0.1 (0-0.2) 10^3/ul Absolute Nucleated RBC 0.02 10^3/ul Nucleated RBC % 0.2 INR (Anticoag Therapy) 0.90 (0.89-1.11) APTT 28.6 (26.0-36.3) seconds Sodium 139 (133-145) mmol/L Potassium 3.7 (3.5-5.0) mmol/L Chloride 105 (101-111) mmol/L Carbon Dioxide 26 (22-32) mmol/L Anion Gap 8 (2-11) mmol/L BUN 11 (6-24) mg/dL Creatinine 0.83 (0.51-0.95) mg/dL Est GFR ( Amer) 86.7 (>60) Est GFR (Non-Af Amer) 67.4 (>60) BUN/Creatinine Ratio 13.3 (8-20) Glucose 104 H (70-100) mg/dL Lactic Acid (0.5-2.0) mmol/L Calcium 9.6 (8.6-10.3) mg/dL Total Bilirubin 1.70 H (0.2-1.0) mg/dL AST 24 (13-39) U/L ALT 22 (7-52) U/L Alkaline Phosphatase 63 (34-104) U/L C-Reactive Protein 46.19 H (< 5.00) mg/L Total Protein 6.7 (6.4-8.9) g/dL Albumin 4.0 (3.2-5.2) g/dL Globulin 2.7 (2-4) g/dL Albumin/Globulin Ratio 1.5 (1-3) Lipase 15 (11.0-82.0) U/L Urine Color Urine Appearance Urine pH (5-9) Ur Specific [place] (1.010-1.030) Urine Protein (Negative) Urine Ketones (Negative) Urine Blood (Negative) Urine Nitrate (Negative) Urine Bilirubin (Negative) Urine Urobilinogen (Negative) Ur Leukocyte Esterase (Negative) Urine Glucose (Negative) 03/15/17 03/15/17 Range/Units 13:38 13:45 WBC (3.5-10.8) 10^3/ul RBC (4.0-5.4) 10^6/ul Hgb (12.0-16.0) g/dl Hct (35-47) % MCV (80-97) fL MCH (27-31) pg MCHC (31-36) g/dl RDW (10.5-15) % Plt Count (150-450) 10^3/ul MPV (7.4-10.4) um3 Neut % (Auto) (38-83) % Lymph % (Auto) (25-47) % [place] % (Auto) (1-9) % Eos % (Auto) (0-6) % Baso % (Auto) (0-2) % Absolute Neuts (auto) (1.5-7.7) 10^3/ul Absolute Lymphs (auto) (1.0-4.8) 10^3/ul Absolute Monos (auto) (0-0.8) 10^3/ul Absolute Eos (auto) (0-0.6) 10^3/ul Absolute Basos (auto) (0-0.2) 10^3/ul Absolute Nucleated RBC 10^3/ul Nucleated RBC % INR (Anticoag Therapy) (0.89-1.11) APTT (26.0-36.3) seconds Sodium (133-145) mmol/L Potassium (3.5-5.0) mmol/L Chloride (101-111) mmol/L Carbon Dioxide (22-32) mmol/L Anion Gap (2-11) mmol/L BUN (6-24) mg/dL Creatinine (0.51-0.95) mg/dL Est GFR ( Amer) (>60) Est GFR (Non-Af Amer) (>60) BUN/Creatinine Ratio (8-20) Glucose (70-100) mg/dL Lactic Acid 0.9 (0.5-2.0) mmol/L Calcium (8.6-10.3) mg/dL Total Bilirubin (0.2-1.0) mg/dL AST (13-39) U/L ALT (7-52) U/L Alkaline Phosphatase (34-104) U/L C-Reactive Protein (< 5.00) mg/L Total Protein (6.4-8.9) g/dL Albumin (3.2-5.2) g/dL Globulin (2-4) g/dL Albumin/Globulin Ratio (1-3) Lipase (11.0-82.0) U/L Urine Color Yellow Urine Appearance Clear Urine pH 7.0 (5-9) Ur Specific [place] 1.006 L (1.010-1.030) Urine Protein Negative (Negative) Urine Ketones Negative (Negative) Urine Blood Negative (Negative) Urine Nitrate Negative (Negative) Urine Bilirubin Negative (Negative) Urine Urobilinogen Negative (Negative) Ur Leukocyte Esterase Negative (Negative) Urine Glucose Negative (Negative) Assess/Plan/Problems-Billing Assessment: - Patient Problems (1) Diverticulitis Current Visit: Yes Status: Acute Comment: Only scant divertiucla seen on CT scan. Not clear if this is diverticulitis, ischemic colitis, or only constipation. I ordered cipro/metro. Dr. Mendiola to see 03/16. Repeat CBC and CRP for 03/16 pending. (2) HTN (hypertension) Current Visit: Yes Status: Acute Code(s): I10 - ESSENTIAL (PRIMARY) HYPERTENSION SNOMED Code(s): 65103213 Comment: Continue amlodipine, hold thiazide. BP 145/62 03/16. (3) Diabetes Current Visit: Yes Status: Acute Code(s): E11.9 - TYPE 2 DIABETES MELLITUS WITHOUT COMPLICATIONS SNOMED Code(s): 33277933 Comment: Not clear if diabetes is the dx associated with her metformin. Note A1C< 6% 09/2016. FS glucose daily with parameters. (4) Constipation Current Visit: Yes Status: Acute Code(s): K59.00 - CONSTIPATION, UNSPECIFIED SNOMED Code(s): 09057544 Comment: MOM 60 ml 03/15, PEG 34 gm bid start PM 03/15. Pt took 3/4 bottle mag citrate at home with no results.
--- NOTE | 2017-03-16 12:10 | PN ---
Progress Note - Progress Note SOAP: Subjective: LLQ pain about the same She is concerned that she has not had a BM yet Tolerating po Objective: Temp Pulse Resp BP Pulse Ox 98.7 F 69 16 139/66 97 03/16/17 11:25 03/16/17 11:25 03/16/17 11:25 03/16/17 11:25 03/16/17 11:40 PEX: Comfortable ABd is soft and slightly distended. Bowel sounds are present. She has tenderness in the left lower quadrant with some voluntary guarding. No mass or peritoneal signs. Assessment: Probable sigmoid diverticulitis Plan: Continue IV antibiotics No surgical intervention indicated at this time.
[2017-03-16 12:31] LABS: Hematocrit 40 % (35-47); Hemoglobin 13.7 g/dl (12.0-16.0); Mean Corpuscular HGB Conc 34 g/dl (31-36); Mean Corpuscular Hemoglobin 32 pg (27-31); Mean Corpuscular Volume 93 fL (80-97); Mean Platelet Volume 7 um3 (7.4-10.4); Red Blood Count 4.33 10^6/ul (4.0-5.4); Red Cell Distribution Width 15 % (10.5-15); White Blood Count 10.4 10^3/ul (3.5-10.8)
[2017-03-16] MEDS: Acetaminophen TAB* 325 MG PO PRN (16:01)
--- NOTE | 2017-03-16 20:28 | CONS ---
GASTROENTEROLOGY CONSULT: DATE: 03/16/17 CONSULTING PHYSICIAN: Cayden Kidd REASON FOR CONSULTATION: Left lower quadrant pain with white count of 12 and nonpassage of any stool for 5 days and gas for 24 hours. HISTORY: This 72-year-old woman became constipated about 5 or 6 days ago passing scybalous stools and then passed nothing at all on 03/12/17 and . She blames eating several restaurant meals heavy in cheese. She then took a bottle of magnesium citrate at home and the next day 2 ounces of milk of magnesia. Still, nothing happened. So, the evening of 03/14/17, she took 2 glasses of MiraLAX. Still with nothing happening and now developing left lower quadrant pain, she came to the emergency room now complaining of pain and was found to be tender in the left lower quadrant. CT scan did not show any definitive diverticulitis or any extraluminal gas. With her white count elevated, diverticulitis seemed most likely and she was placed on Cipro and Flagyl and also Lovenox shots. She was also given more Miralax. Over the last 24 hours, she has become progressively more bloated and a little uncomfortable on that basis. There is still some focal pain in the left lower quadrant to deep palpation, though she is able to ambulate. She has developed a temperature of 100.3. There has been no emesis, but she is feeling anorectic. She has not passed any gas in 36 hours or more. She had treatment for perforated diverticulitis 3 or 4 years ago in [place]. Colonoscopy in 2014 showed as before a very narrow muscular left colon with diverticula, though no acute diverticulitis at that time. She is prone to constipation. She has had several sigmoidoscopies prior to that showing diverticulosis. She has not had any polyps. In 2006 she had ischemic colitis. There is no family history of colon cancer. PAST MEDICAL HISTORY: 1. Status post cholecystectomy. 2. Status post complete hysterectomy with incidental appendectomy. 3. Pacemaker insertion, April 2016 - no syncope leading up to it. 4. Obesity. 5. Adult onset diabetes. 6. Hypertension - followed by Dr Segovia 7. Hypercholesterolemia. 8. 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 ALLERGIES: SULFA and BEE VENOM. SOCIAL HISTORY: She is a retired certified medical transcriptionist ([employer] and [employer] MEM[employer]) who lives with her in [place]. Her youngest daughter works in a medical office and is with custody issues regarding her grandson born 2012 That is a source of great stress. REVIEW OF SYSTEMS: No history of [place], coronary stent, syncope, TB, or hemoptysis. She has had treatment for an acoustic neuroma with radiation treatment in [place]. No history of renal stones, gross hematuria, hepatitis, jaundice, or pancreatic abnormalities. EXAM: She is an elder woman lying in bed, in no acute distress. HEENT exam is unremarkable. She has no adenopathy. Her lungs are clear and heart sounds normal. The abdomen is symmetrically distended, clearly bloated. Bowel sounds are quite active, a little bit tinny and hyperactive, though not any kwabena obstructive rushes. The abdomen is soft, but there is tenderness in the left lower quadrant to deep palpation. Rectal: Deferred. LABS: White count yesterday 11.8 and today 10.4, hemoglobin 15.0 and today 13.7. CRP went from 46 to 85 and albumin was 4. BUN 11, creatinine 0.83. Imaging: stranding near the low sigmoid colon with some low pelvic free fluid and fluid in a nondistended colon IMPRESSION: Diverticulitis with an underlying scarred and a narrowed sigmoid colon and at this moment some restriction to passage of gas and liquid stool and the osmotic laxatives she has taken are accumulating in the proximal colon. It is a good sign that her white count went down, though there is the possibility that her colon will be functionally obstructed and a diverting colostomy may be needed. [id number]/[facility] #: [id number] [facility]
[2017-03-16] MEDS: Enoxaparin(*) 40 MG/0.4 ML SYR SUBCUT SCH (20:41)
[2017-03-17] MEDS: Acetaminophen TAB* 325 MG PO PRN ×2 (00:01→17:31)
[2017-03-17] MEDS: Ondansetron INJ* 2 MG/ML VIAL IV PRN ×2 (00:05→11:49)
[2017-03-17] MEDS: oxyCODONE TAB* 5 MG TAB PO PRN ×3 (03:04→11:35)
[2017-03-17] MEDS: metroNIDAZOLE IV 500 MG/100ML* 500 MG/100 ML BAG IVPB SCH ×3 (03:04→19:56)
[2017-03-17] MEDS: Ciprofloxacin 400MG IVPREMIX(* 400 MG/200 ML BAG IVPB SCH ×2 (04:39→17:25)
[2017-03-17 04:49] LABS: Hematocrit 39 % (35-47); Hemoglobin 13.3 g/dl (12.0-16.0); Mean Corpuscular HGB Conc 34 g/dl (31-36); Mean Corpuscular Hemoglobin 31 pg (27-31); Mean Corpuscular Volume 92 fL (80-97); Mean Platelet Volume 7 um3 (7.4-10.4); Red Blood Count 4.27 10^6/ul (4.0-5.4); Red Cell Distribution Width 15 % (10.5-15); White Blood Count 10.3 10^3/ul (3.5-10.8)
[2017-03-17 05:01] LABS: Albumin 3.3 g/dL (3.2-5.2); BUN/Creatinine Ratio 9.5 (8-20); C Reactive Protein 109.48 mg/L (< 5.00); Calcium 8.5 mg/dL (8.6-10.3); EGFR African American 85.5 (>60); EGFR Non-African American 66.5 (>60); Globulin 2.4 g/dL (2-4); Potassium 3.7 mmol/L (3.5-5.0); Total Bilirubin 1.3 mg/dL (0.2-1.0); Total Protein 5.7 g/dL (6.4-8.9)
[2017-03-17] MEDS: Polyethylene Glycol 3350* 17 GM PACKET PO SCH ×2 (07:21→19:34)
[2017-03-17] MEDS: Omeprazole CAP* 20 MG PO SCH (07:22)
[2017-03-17] MEDS: Mometasone/Formoter 200/5 MDI INH SCH ×2 (08:49→20:36)
[2017-03-17] MEDS: Aspirin EC Low Dose* 81 MG TAB.EC PO SCH (09:11)
[2017-03-17] MEDS: Cholecalciferol TAB* 1000 UNITS PO SCH ×2 (09:11→09:13)
--- NOTE | 2017-03-17 17:11 | PN ---
Subjective Date of Service: 03/17/17 Interval History: Two BM's so far today, not a large volume. Appetite OK. Abd pain better, using less opiates. No new c/o. Family History: Findings - unremarkable. Social History: Findings - Lives with her who is her SDM. Never smoked , no alcohol abuse. Past Medical History: Findings - Acoustic neuroma RT 2013. Pacemaker is MRI- safe. TIA 1997. Ischemic colitis 2006. Hysterectomy, cataract surgery, cholecystectomy. Objective Active Medications: Acetaminophen (Tylenol Tab*) 650 mg PO Q4H PRN PRN Reason: PAIN Last Admin: 03/17/17 00:01 Dose: 650 mg Albuterol/Ipratropium (Duoneb (Albuterol 2.5 Mg/Ipratropium 0.5 Mg)) 1 neb INH Q4H PRN PRN Reason: SOB/WHEEZING Alprazolam (Xanax Tab*) 0.5 mg PO Q8H PRN PRN Reason: ANXIETY Aspirin (Aspirin Ec Low Dose*) 81 mg PO DAILY [facility] Last Admin: 03/17/17 09:11 Dose: 81 mg Cholecalciferol (Vitamin D Tab*) 1,000 units PO DAILY [facility] Last Admin: 03/17/17 09:13 Dose: 1,000 units Enoxaparin Sodium (Lovenox(*)) 40 mg SUBCUT Q24H [facility] Last Admin: 03/16/17 20:41 Dose: 40 mg Ciprofloxacin/Dextrose (Cipro 400 Mg Ivpremix(*)) 400 mg in 200 mls @ 200 mls/ hr IVPB Q12H [facility] Last Admin: 03/17/17 04:39 Dose: 200 mls/hr Metronidazole/Sodium Chloride (Flagyl 500 Mg Ivpb*) 500 mg in 100 mls @ 100 mls /hr IVPB Q8H [facility] Last Admin: 03/17/17 11:32 Dose: 100 mls/hr Mometasone Furoate/Formoterol Fumar (Dulera 200/5 Mdi*) 2 puff INH BID BARRY PRN Reason: Protocol Last Admin: 03/17/17 08:49 Dose: 2 puff Omeprazole (Prilosec Cap*) 20 mg PO 0700 [facility] Last Admin: 03/17/17 07:22 Dose: 20 mg Ondansetron HCl (Zofran Inj*) 4 mg IV Q6H PRN PRN Reason: NAUSEA Last Admin: 03/17/17 11:49 Dose: 4 mg Oxycodone HCl (Roxycodone Tab*) 5 mg PO Q4H PRN PRN Reason: PAIN - MODERATE TO SEVERE Last Admin: 03/17/17 11:35 Dose: 5 mg Polyethylene Glycol/Electrolytes (Miralax*) 34 gm PO 0800,2100 BARRY Last Admin: 03/17/17 07:21 Dose: 34 gm Vital Signs 03/16/17 03/16/17 03/16/17 19:16 19:43 20:36 Temperature 99.2 F Pulse Rate 64 89 Respiratory 16 16 Rate Blood Pressure 136/48 (mmHg) O2 Sat by Pulse 94 91 Oximetry 03/16/17 03/16/17 03/16/17 20:43 22:43 23:58 Temperature 99.7 F Pulse Rate 68 Respiratory 16 16 20 Rate Blood Pressure 147/61 (mmHg) O2 Sat by Pulse 93 Oximetry 03/17/17 03/17/17 03/17/17 03:04 03:14 05:04 Temperature 98.7 F Pulse Rate 63 Respiratory 16 16 16 Rate Blood Pressure 146/50 (mmHg) O2 Sat by Pulse 94 Oximetry 03/17/17 03/17/17 03/17/17 07:21 07:24 07:39 Temperature 98.4 F Pulse Rate 65 Respiratory 18 16 16 Rate Blood Pressure 136/71 (mmHg) O2 Sat by Pulse 96 Oximetry 03/17/17 03/17/17 03/17/17 08:49 09:21 11:18 Temperature 98.2 F Pulse Rate 64 65 Respiratory 16 15 16 Rate Blood Pressure 138/60 (mmHg) O2 Sat by Pulse 96 94 Oximetry 03/17/17 03/17/17 11:35 15:27 Temperature 98.7 F Pulse Rate 74 Respiratory 16 20 Rate Blood Pressure 176/67 (mmHg) O2 Sat by Pulse 95 Oximetry Oxygen Devices in Use Now: None Appearance: Alert, partly up in bed. In good spirits. Looks comfortable. Eyes: No Scleral Icterus Neck: NL Appearance and Movements; NL JVP, No Thyroid Enlargement, Masses Respiratory: Symmetrical Chest Expansion and Respiratory Effort, Clear to Auscultation, Clear to Percussion Abdominal: NL Sounds; No Tenderness; No Distention, No Hepatosplenomegaly, - Extremities: No Edema, No Clubbing, Cyanosis, - Skin: No Rash or Ulcers, No Nodules or Sclerosis, - Neurological: Alert and Oriented x 3, NL Sensation Result Diagrams: 03/17/17 04:28 03/17/17 04:28 Additional Lab and Data: Lab Results 03/15/17 03/15/17 03/15/17 Range/Units 13:38 13:38 13:38 WBC 11.8 H (3.5-10.8) 10^3/ul RBC 4.84 (4.0-5.4) 10^6/ul Hgb 15.0 (12.0-16.0) g/dl Hct 45 (35-47) % MCV 92 (80-97) fL MCH 31 (27-31) pg MCHC 34 (31-36) g/dl RDW 15 (10.5-15) % Plt Count 275 (150-450) 10^3/ul MPV 7 L (7.4-10.4) um3 Neut % (Auto) 80.6 (38-83) % Lymph % (Auto) 10.2 L (25-47) % [place] % (Auto) 7.5 (1-9) % Eos % (Auto) 1.1 (0-6) % Baso % (Auto) 0.6 (0-2) % Absolute Neuts (auto) 9.5 H (1.5-7.7) 10^3/ul Absolute Lymphs (auto) 1.2 (1.0-4.8) 10^3/ul Absolute Monos (auto) 0.9 H (0-0.8) 10^3/ul Absolute Eos (auto) 0.1 (0-0.6) 10^3/ul Absolute Basos (auto) 0.1 (0-0.2) 10^3/ul Absolute Nucleated RBC 0.02 10^3/ul Nucleated RBC % 0.2 INR (Anticoag Therapy) 0.90 (0.89-1.11) APTT 28.6 (26.0-36.3) seconds Sodium 139 (133-145) mmol/L Potassium 3.7 (3.5-5.0) mmol/L Chloride 105 (101-111) mmol/L Carbon Dioxide 26 (22-32) mmol/L Anion Gap 8 (2-11) mmol/L BUN 11 (6-24) mg/dL Creatinine 0.83 (0.51-0.95) mg/dL Est GFR ( Amer) 86.7 (>60) Est GFR (Non-Af Amer) 67.4 (>60) BUN/Creatinine Ratio 13.3 (8-20) Glucose 104 H (70-100) mg/dL Lactic Acid (0.5-2.0) mmol/L Calcium 9.6 (8.6-10.3) mg/dL Total Bilirubin 1.70 H (0.2-1.0) mg/dL AST 24 (13-39) U/L ALT 22 (7-52) U/L Alkaline Phosphatase 63 (34-104) U/L C-Reactive Protein 46.19 H (< 5.00) mg/L Total Protein 6.7 (6.4-8.9) g/dL Albumin 4.0 (3.2-5.2) g/dL Globulin 2.7 (2-4) g/dL Albumin/Globulin Ratio 1.5 (1-3) Lipase 15 (11.0-82.0) U/L Urine Color Urine Appearance Urine pH (5-9) Ur Specific [place] (1.010-1.030) Urine Protein (Negative) Urine Ketones (Negative) Urine Blood (Negative) Urine Nitrate (Negative) Urine Bilirubin (Negative) Urine Urobilinogen (Negative) Ur Leukocyte Esterase (Negative) Urine Glucose (Negative) 03/15/17 03/15/17 Range/Units 13:38 13:45 WBC (3.5-10.8) 10^3/ul RBC (4.0-5.4) 10^6/ul Hgb (12.0-16.0) g/dl Hct (35-47) % MCV (80-97) fL MCH (27-31) pg MCHC (31-36) g/dl RDW (10.5-15) % Plt Count (150-450) 10^3/ul MPV (7.4-10.4) um3 Neut % (Auto) (38-83) % Lymph % (Auto) (25-47) % [place] % (Auto) (1-9) % Eos % (Auto) (0-6) % Baso % (Auto) (0-2) % Absolute Neuts (auto) (1.5-7.7) 10^3/ul Absolute Lymphs (auto) (1.0-4.8) 10^3/ul Absolute Monos (auto) (0-0.8) 10^3/ul Absolute Eos (auto) (0-0.6) 10^3/ul Absolute Basos (auto) (0-0.2) 10^3/ul Absolute Nucleated RBC 10^3/ul Nucleated RBC % INR (Anticoag Therapy) (0.89-1.11) APTT (26.0-36.3) seconds Sodium (133-145) mmol/L Potassium (3.5-5.0) mmol/L Chloride (101-111) mmol/L Carbon Dioxide (22-32) mmol/L Anion Gap (2-11) mmol/L BUN (6-24) mg/dL Creatinine (0.51-0.95) mg/dL Est GFR ( Amer) (>60) Est GFR (Non-Af Amer) (>60) BUN/Creatinine Ratio (8-20) Glucose (70-100) mg/dL Lactic Acid 0.9 (0.5-2.0) mmol/L Calcium (8.6-10.3) mg/dL Total Bilirubin (0.2-1.0) mg/dL AST (13-39) U/L ALT (7-52) U/L Alkaline Phosphatase (34-104) U/L C-Reactive Protein (< 5.00) mg/L Total Protein (6.4-8.9) g/dL Albumin (3.2-5.2) g/dL Globulin (2-4) g/dL Albumin/Globulin Ratio (1-3) Lipase (11.0-82.0) U/L Urine Color Yellow Urine Appearance Clear Urine pH 7.0 (5-9) Ur Specific [place] 1.006 L (1.010-1.030) Urine Protein Negative (Negative) Urine Ketones Negative (Negative) Urine Blood Negative (Negative) Urine Nitrate Negative (Negative) Urine Bilirubin Negative (Negative) Urine Urobilinogen Negative (Negative) Ur Leukocyte Esterase Negative (Negative) Urine Glucose Negative (Negative) Assess/Plan/Problems-Billing Assessment: - Patient Problems (1) Diverticulitis Current Visit: Yes Status: Acute Comment: Only scant divertiucla seen on CT scan. Not clear if this is diverticulitis, ischemic colitis, or only constipation. Continue cipro/metro. Discussed with Dr. Mendiola again on . I also spoke with Dr. Menezes about possible colostomy. Clinically improved as of 03/17 but CRP has increased--hopefully will decrease in a few days. (2) HTN (hypertension) Current Visit: Yes Status: Acute Code(s): I10 - ESSENTIAL (PRIMARY) HYPERTENSION SNOMED Code(s): 40997616 Comment: Continue amlodipine, hold thiazide. BP 176/67 on 03/17/17. (3) Diabetes Current Visit: Yes Status: Acute Code(s): E11.9 - TYPE 2 DIABETES MELLITUS WITHOUT COMPLICATIONS SNOMED Code(s): 82300738 Comment: Not clear if diabetes is the dx associated with her metformin. Note A1C< 6% 09/2016. FS glucose daily with parameters. (4) Constipation Current Visit: Yes Status: Acute Code(s): K59.00 - CONSTIPATION, UNSPECIFIED SNOMED Code(s): 96434396 Comment: Continue PEG 34 gm bid.
--- NOTE | 2017-03-17 17:18 | PN ---
Progress Note - Progress Note SOAP: Subjective: She had 2 BM's today, one this afternoon she describes as "normal caliber" and color. Occasional abdominal pain She is ambulating in the halls quite a bit Also had BM last night. Objective: Temp Pulse Resp BP Pulse Ox 98.7 F 74 20 176/67 95 03/17/17 15:27 03/17/17 15:27 03/17/17 15:27 03/17/17 15:27 03/17/17 15:27 PEX: Comfortable Abd is soft and non-distended. Bowel sounds are present but are hypoactive. She has tenderness in the left lower quadrant with some guarding, no peritoneal signs present. Laboratory Results - last 24 hr 03/17/17 03/17/17 04:28 04:28 WBC 10.3 RBC 4.27 Hgb 13.3 Hct 39 MCV 92 MCH 31 MCHC 34 RDW 15 Plt Count 228 MPV 7 L Sodium 137 Potassium 3.7 Chloride 106 Carbon Dioxide 27 Anion Gap 4 BUN 8 Creatinine 0.84 Est GFR ( Amer) 85.5 Est GFR (Non-Af Amer) 66.5 BUN/Creatinine Ratio 9.5 Glucose 112 H Calcium 8.5 L Total Bilirubin 1.30 H AST 14 ALT 14 Alkaline Phosphatase 51 C-Reactive Protein 109.48 H Total Protein 5.7 L Albumin 3.3 Globulin 2.4 Albumin/Globulin Ratio 1.4 Assessment: Sigmoid colitis-probable diverticulitis Constipation--improving Plan: Continue IV antibiotics I discussed her care with her and her . I suspect she has significant swelling in the sigmoid area due to the acute inflammation on top of some possible chronic scarring and narrowing of this area and this is causing her constipation. CT does not show evidence of a large bowel obstruction and she seems to be improving, having two bowel movements today. He WBC is normal. She is frustrated that she is not seeing faster progress but at the same time the only surgical option would be resection of the involved sigmoid colon with a temporary end colostomy and at this point this is not indicated. Will continue to follow. I discussed the above with Dr. Mendiola.
[2017-03-17] MEDS: Enoxaparin(*) 40 MG/0.4 ML SYR SUBCUT SCH (19:38)
[2017-03-18] MEDS: metroNIDAZOLE IV 500 MG/100ML* 500 MG/100 ML BAG IVPB SCH (03:18)
[2017-03-18] MEDS: Omeprazole CAP* 20 MG PO SCH (05:52)
[2017-03-18] MEDS: Ciprofloxacin 400MG IVPREMIX(* 400 MG/200 ML BAG IVPB SCH (05:52)
[2017-03-18 06:24] LABS: Hematocrit 39 % (35-47); Hemoglobin 13.3 g/dl (12.0-16.0); Mean Corpuscular HGB Conc 34 g/dl (31-36); Mean Corpuscular Hemoglobin 32 pg (27-31); Mean Corpuscular Volume 92 fL (80-97); Mean Platelet Volume 7 um3 (7.4-10.4); Red Blood Count 4.19 10^6/ul (4.0-5.4); Red Cell Distribution Width 15 % (10.5-15); White Blood Count 6.3 10^3/ul (3.5-10.8)
[2017-03-18 06:38] LABS: BUN/Creatinine Ratio 10.3 (8-20); C Reactive Protein 106.56 mg/L (< 5.00); Calcium 8.7 mg/dL (8.6-10.3); EGFR African American 82.1 (>60); EGFR Non-African American 63.8 (>60); Potassium 3.6 mmol/L (3.5-5.0)
[2017-03-18] MEDS: Polyethylene Glycol 3350* 17 GM PACKET PO SCH (08:01)
--- NOTE | 2017-03-18 08:02 | PN ---
Progress Note - Progress Note SOAP: Subjective: Multiple BM's last night--solid and loose stool No abdominal pain or distention Has appetite Objective: Temp Pulse Resp BP Pulse Ox 98.5 F 71 16 156/65 93 03/18/17 03:06 03/18/17 03:06 03/18/17 03:06 03/18/17 03:06 03/18/17 03:06 PEX: Comfortable Abd is soft and non-distended. Bowel sounds are present. Very mild tenderness LLQ without mass or peritoneal irritation. Laboratory Results - last 24 hr 03/18/17 03/18/17 05:45 05:45 WBC 6.3 RBC 4.19 Hgb 13.3 Hct 39 MCV 92 MCH 32 H MCHC 34 RDW 15 Plt Count 248 MPV 7 L Sodium 140 Potassium 3.6 Chloride 107 Carbon Dioxide 25 Anion Gap 8 BUN 9 Creatinine 0.87 Est GFR ( Amer) 82.1 Est GFR (Non-Af Amer) 63.8 BUN/Creatinine Ratio 10.3 Glucose 94 Calcium 8.7 C-Reactive Protein 106.56 H Assessment: Left colon/sigmoid colitis-improving on IV abx. CRP decreasing. Plan: She is much improved today and having multiple bowel movements and the relative obstruction most likely secondary to inflammation is resolving. She has had diverticulitis and ischemic colitis in the past and most likely has some hypertrophy and scarring in the area that is chronic. Recommend IV abx and advance low residue diet and d/c on long course of oral antibiotics and consider contrast study (i.e barium enema) in the future to evaluate for stricture. She had colonoscopy with Dr. Mendiola in 2014. [facility] will be covering for me until 03/22/17.
[2017-03-18] MEDS: Aspirin EC Low Dose* 81 MG TAB.EC PO SCH (08:49)
[2017-03-18] MEDS: Cholecalciferol TAB* 1000 UNITS PO SCH (08:50)
[2017-03-18] MEDS: Mometasone/Formoter 200/5 MDI INH SCH (08:51)
--- NOTE | 2017-03-18 08:52 | RAD ---
INDICATION: Constipation COMPARISON: None TECHNIQUE: Supine and upright views of the abdomen were obtained. FINDINGS: Air-fluid levels are noted in the small bowel overlying the left upper quadrant. A similar appearance is questionably identified in the colon overlying the hepatic flexure. On the standing view there are gas-filled loops of small bowel at the left of midline abdomen measuring up to 2.3 cm in diameter which is not pathologically dilated by size criteria. Gas and stool is seen overlying much of the colon. Hyperdense material in the descending colon is likely diluted oral contrast from the March 15, 2017 CT examination there is no free air beneath diaphragm to indicate bowel perforation. IMPRESSION: Air-fluid levels in the left upper quadrant without pathologically dilated loops of bowel by radiographic criteria.
[2017-03-18 10:48] VITALS: BP 164/82
--- NOTE | 2017-03-22 07:56 | PN ---
Hospitalist Progress Note . HOSPITALIST DISCHARGE NOTE: See dc instructions and summary by me. Patient stable for dc dc instructions reviewed with the patient at the bedside. DC patient home today.
--- NOTE | 2017-03-22 11:32 | DS ---
CC: Kvng Mendiola MD; Javed Menezes MD DISCHARGE SUMMARY: DATE OF ADMISSION: 03/16/17 DATE OF DISCHARGE: 03/18/17 STATUS DURING HOSPITALIZATION: Inpatient. PRIMARY CARE PROVIDER: Kvng Mendiola MD, from [facility]. CURATOR OF PHOTOGRAPHY AND PRINTS: Javed Menezes MD PRINCIPAL DISCHARGE DIAGNOSIS: Sigmoid diverticulitis. SECONDARY DIAGNOSES: 1. Known diverticular disease. 2. History of left-sided ischemic colitis in 2006. 3. Obesity. 4. Uhj-bmdzrgk-sttjvsnux diabetes. 5. Hypercholesterolemia. 6. Hypertension. 7. Anxiety. SURGICAL HISTORY: Includes cholecystectomy, hysterectomy with bilateral salpingo- oophorectomy, jalil endectomy, pacemaker insertion. DISCHARGE MEDICATION REGIMEN: Prescribed: 1. Ciprofloxacin 500 mg by mouth twice daily for 5 days and then stop. 2. Metronidazole 500 mg by mouth twice daily and then stop. Continue: 1. Ranitidine 300 mg by mouth twice daily. 2. Alprazolam 0.5 mg by mouth 4 times daily as needed for anxiety. 3. Meclizine 2 tablets by mouth twice daily (Antivert). 4. Ecotrin 81 mg 1 tablet by mouth daily. 5. Naprosyn 250 mg tabs 2 tabs orally twice daily as needed for pain. 6. Hydrochlorothiazide 12.5 mg by mouth every 48 hours. 7. Gemfibrozil tabs 2 tabs every day. 8. Vitamin B one tab by mouth every day. 9. Polyethylene glycol 17 g daily as needed. 10. Cholecalciferol one tab by mouth daily. 11. [place]-3 fatty acids one tab by mouth daily. 12. Biotin one tab by mouth daily. 13. Phenergan 1 teaspoon orally as needed for sore throat. 14. Calcium, magnesium, zinc, and multivitamin one tab by mouth once daily. 15. Vitamin C one tablet by mouth daily. 16. Lomotil one tab by mouth 3 times daily. 17. Pravastatin 40 mg by mouth at bedtime. 18. Metformin 500 mg by mouth 3 times daily. 19. Ibuprofen as needed for pain. 20. Levalbuterol one neb inhaled every 4 hours as needed. 21. Amlodipine 5 mg by mouth daily. HISTORY OF PRESENT ILLNESS AND HOSPITAL COURSE: Please see the H and P by Dr. Cayden Kidd as we ll as surgery consultation by Dr. Javed Menezes both on 03/16/17. In brief, Ms. Bazan is a 72-ye ar-old woman with known diverticular disease who came to the emergency room for several days of cons tipation, abdominal pain, and now the development of left lower quadrant abdominal pain since the da y prior to admission. The patient had no fevers, shakes, or chills. She has recently undergone a c olonoscopy, which showed a left colonic diverticulosis with muscular hypertrophy in the sigmoid and descending colon consistent with chronic diverticular disease without acute inflammation. The patie nt had a CT scan which shows stool throughout the entire colon with some mesenteric stranding and a small amount of free fluid at the level of the distal sigmoid colon, all consistent with colitis and /or diverticulitis. The patient was diagnosed with sigmoid diverticulitis and started on IV antibio tics to include ciprofloxacin and metronidazole. The patient has done well. She has defeversced th rough the hospitalization with normal bowel movements. Her initial white count was elevated and thi s dropped into the normal range. Her chemistries showed some initial dehydration, which was resolve d with fluids. The patient's CRP was elevated, all consistent with an infection. She is discharged on an additional 5 days of antibiotics and then to follow with Dr. Kvng Mendiola in the outpatient setting. She was given return to ED instructions should she reexperience abdominal pain, fevers or a ny other worrisome symptoms that do not quickly martin. CONDITION ON DISCHARGE: Stable. [id number]/[facility] #: [id number]
== END 2017-03-18 12:35 | disposition home or self-care (01) | DRG 392 ==
LOC: ED 11:54 → MEDTELE 18:24 → OBSVTOIN 03-16 10:34 → MED 03-17 22:34
PROVIDERS: ADMIT Internal Medicine; ATTEND Internal Medicine
DX: K57.32 Diverticulitis of large intestine without perforation or abscess without bleeding (principal); J44.9 Chronic obstructive pulmonary disease, unspecified; E11.9 Type 2 diabetes mellitus without complications; K51.50 Left sided colitis without complications; R40.2412 Glasgow coma scale score 13-15, at arrival to emergency department; K59.00 Constipation, unspecified; F41.9 Anxiety disorder, unspecified; E66.9 Obesity, unspecified; I10 Essential (primary) hypertension; E78.00 Pure hypercholesterolemia, unspecified; Z86.73 Personal history of transient ischemic attack (TIA), and cerebral infarction without residual deficits; Z88.2 Allergy status to sulfonamides; Z91.030 Bee allergy status; Z85.828 Personal history of other malignant neoplasm of skin; Z85.848 Personal history of malignant neoplasm of other parts of nervous tissue; Z90.710 Acquired absence of both cervix and uterus; Z98.49 Cataract extraction status, unspecified eye; Z95.0 Presence of cardiac pacemaker; Z82.49 Family history of ischemic heart disease and other diseases of the circulatory system; Z92.3 Personal history of irradiation; Z68.33 Body mass index [BMI] 33.0-33.9, adult
CPT/HCPCS: 36415; 74020; 74177; 80048; 80053; 81003; 83605; 83690; 85025; 85027; 85610; 85730; 86140; 94640; 94760; A9270-GY; G0378; J0744; J1650; J2270; J2405; Q9967

== ENCOUNTER 2017-05-09 13:51 | Emergency (ER) | payer MEDICARE ==
[2017-05-09 15:43] VITALS: BP 150/66
--- NOTE | 2017-05-09 15:52 | UC ---
Skin Complaint HPI - History of Current Complaint Chief Complaint: UCSkin Time Seen by Provider: 05/09/17 15:44 Stated Complaint: SKIN COMPLAINT Hx Obtained From: Patient ?: No Onset/Duration: Gradual Onset - developed a sore on the left second toe., Lasting Weeks - 2, Worse Since - This morning picked the scab off and pus came out. Timing: Constant Onset Severity: Mild Current Severity: Moderate Location: Foot (Left) - 2nd toe Character: Redness, Raised Aggravating: Touch Alleviating: Nothing Associated Signs & Symptoms: Positive: Drainage - squeezed it and pus popped out.. Negative: Nausea, Vomiting, Diaphoresis, Weakness, Fever, Chills - Allergy/Home Medications Allergies/Adverse Reactions: Allergies Allergy/AdvReac Type Severity Reaction Status Date / Time Sulfa Antibiotics Allergy Intermediate Rash Verified 05/09/17 15:35 Bee Venom Allergy Difficulty Verified 05/09/17 15:35 Breathing/Wheezing Review of Systems Skin: Other - sore on left 2nd toe All Other Systems Reviewed And Are Negative: Yes PMH/Surg Hx/FS Hx/Imm Hx Respiratory History: COPD, Asthma GI/ History: Diverticulitis Neurological History: TIA Cancer History: Other - Skin cancer Other Cancer History: skin cancer - Surgical History Surgical History: Yes Surgery Procedure, Year, and Place: 3 C-SECTIONS,TOTAL HYSTERECTOMY, GALLBLADDER ,HERNIA,CATARACTS. TONSILECTOMY - as a child. pacemaker - Family History Known Family History: Positive: Cardiac Disease, Hypertension, Diabetes - Social History Occupation: Retired Lives: With Family Alcohol Use: Occasionally Substance Use Type: None Smoking Status (MU): Never Smoked Tobacco Household Exposure Type: Cigarettes - Immunization History Most Recent Influenza Vaccination: [id number] Most Recent Tetanus Shot: unknown Most Recent Pneumonia Vaccination: pneumovac and prevnar Physical Exam Triage Information Reviewed: Yes Appearance: Well-Appearing, No Pain Distress, Well-Nourished Vital Signs: Initial Vital Signs Temp 97.6 F 05/09/17 15:35 Pulse 64 05/09/17 15:35 Resp 18 05/09/17 15:35 BP 150/66 05/09/17 15:35 Pulse Ox 97 05/09/17 15:35 Vital Signs Reviewed: Yes Eyes: Positive: Conjunctiva Clear Neck exam: Normal Respiratory Exam: Normal Cardiovascular Exam: Normal Musculoskeletal Exam: Normal Neurological Exam: Normal Psychological Exam: Normal Skin: Positive: Other - open wound left second toe, with erythema Course/Dx - Differential Diagnoses - Skin Complaint Differential Diagnoses: Abscess, Cellulitis, Lymphangitis - Diagnoses Provider Diagnoses: abscess left 2nd toe Discharge - Discharge Plan Condition: Stable Disposition: HOME Prescriptions: Cephalexin CAP* [Keflex 500 CAP*] 500 mg PO QID #28 cap Patient Education Materials: Abscess (ED), Cephalexin (By mouth)
== END 2017-05-09 16:20 | disposition home or self-care (01) ==
LOC: UCCORT 13:51
DX: L02.612 Cutaneous abscess of left foot (principal); Z88.2 Allergy status to sulfonamides; J44.9 Chronic obstructive pulmonary disease, unspecified; Z86.73 Personal history of transient ischemic attack (TIA), and cerebral infarction without residual deficits; Z85.828 Personal history of other malignant neoplasm of skin; Z95.0 Presence of cardiac pacemaker
CPT/HCPCS: 87070; 87205; 99212; G0463

== ENCOUNTER 2017-08-01 09:25 | Emergency (ER) | payer MEDICARE ==
[2017-08-01 10:22] VITALS: BP 133/70
--- NOTE | 2017-08-01 10:51 | UC ---
Lower Extremity/Ankle HPI - HPI Summary HPI Summary: has had left second toe swelling since March Has a raised area with a "pore" that drains pus cultured x 2 once normal alexsandra once no growth 2 rounds of Antibiotics - History of Current Complaint Chief Complaint: UCSkin Stated Complaint: LEFT FOOT SKIN CONCERN Time Seen by Provider: 08/01/17 10:30 Hx Last Menstrual Period: n/a Onset/Duration: Gradual Onset, Lasting Weeks Severity Initially: Mild Severity Currently: Mild Pain Intensity: 3 Pain Scale Used: 0-10 Numeric Aggravating Factor(s): Standing, Ambulation Alleviating Factor(s): Rest Able to Bear Weight: Yes - Allergies/Home Medications Allergies/Adverse Reactions: Allergies Allergy/AdvReac Type Severity Reaction Status Date / Time Sulfa Antibiotics Allergy Intermediate Rash Verified 08/01/17 10:22 Bee Venom Allergy Difficulty Verified 08/01/17 10:22 Breathing/Wheezing Home Medications: Home Medications hydrOXYzine HCL TAB* [Atarax 10 MG TAB*] 10 mg PO BID 08/01/17 [History Confirmed 08/01/17] PMH/Surg Hx/FS Hx/Imm Hx Previously Healthy: Yes Endocrine History: Dyslipidemia Cardiovascular History: Cardiac Disease, Hypertension, Pacemaker/ICD Respiratory History: COPD, Asthma - Surgical History Surgical History: Yes Surgery Procedure, Year, and Place: 3 C-SECTIONS,TOTAL HYSTERECTOMY, GALLBLADDER ,HERNIA,CATARACTS. TONSILECTOMY - as a child. pacemaker - Family History Known Family History: Positive: Cardiac Disease, Hypertension, Diabetes - Social History Alcohol Use: Rare Substance Use Type: None Smoking Status (MU): Never Smoked Tobacco Household Exposure Type: Cigarettes - Immunization History Most Recent Influenza Vaccination: 07/2017 Most Recent Tetanus Shot: unknown Most Recent Pneumonia Vaccination: pneumovac and prevnar Review of Systems Constitutional: Negative Skin: Negative Eyes: Negative ENT: Negative Respiratory: Negative Cardiovascular: Negative Gastrointestinal: Negative Genitourinary: Negative Motor: Negative Neurovascular: Negative Musculoskeletal: Arthralgia Neurological: Negative Psychological: Negative Is Patient Immunocompromised?: No All Other Systems Reviewed And Are Negative: Yes Physical Exam Triage Information Reviewed: Yes Appearance: Well-Appearing, No Pain Distress, Well-Nourished Vital Signs: Initial Vital Signs Temp 98.3 F 08/01/17 10:17 Pulse 68 08/01/17 10:17 Resp 16 08/01/17 10:17 BP 133/70 08/01/17 10:17 Pulse Ox 99 08/01/17 10:17 Eyes: Positive: Conjunctiva Clear ENT: Positive: Hearing grossly normal. Negative: Nasal congestion, Nasal drainage, Trismus Neck: Positive: Supple, Nontender Respiratory: Positive: Lungs clear, Normal breath sounds, No respiratory distress, No accessory muscle use Cardiovascular: Positive: RRR, No Murmur Psychological Exam: Normal Skin Exam: Other - see image Lower Extremity Course/Dx - Differential Dx/Diagnosis Provider Diagnoses: chronic left second toe infection-possible osteomyelitis Discharge - Discharge Plan Condition: Stable Disposition: HOME Prescriptions: Ciprofloxacin HCl [Cipro 500 MG TAB] 500 mg PO BID #14 tab Patient Education Materials: Osteomyelitis (ED) Referrals: Radha Esqueda MD [Medical Doctor] - As Soon As Possible
--- NOTE | 2017-08-01 10:59 | RAD ---
HISTORY: To infection, osteomyelitis COMPARISONS: None VIEWS: 3, Frontal, lateral, and oblique views of the second digit of the left foot FINDINGS: BONE DENSITY: Normal. BONES: There is erosion at the head of the proximal phalanx of the second digit JOINTS: There is no arthropathy. ALIGNMENT: There is no dislocation. SOFT TISSUES: Unremarkable. OTHER FINDINGS: None. IMPRESSION: EROSION AT THE HEAD OF THE PROXIMAL PHALANX OF THE SECOND DIGIT. GIVEN THE HISTORY OF CHRONIC INFECTION, THE IMAGING APPEARANCE IS CONCERNING FOR OSTEOMYELITIS
[2017-08-01 13:44] LABS: Hematocrit 45 % (35-47); Hemoglobin 15.3 g/dl (12.0-16.0); Mean Corpuscular HGB Conc 34 g/dl (31-36); Mean Corpuscular Hemoglobin 31 pg (27-31); Mean Corpuscular Volume 90 fL (80-97); Mean Platelet Volume 8 um3 (7.4-10.4); Red Blood Count 4.99 10^6/ul (4.0-5.4); Red Cell Distribution Width 14 % (10.5-15); White Blood Count 8.9 10^3/ul (3.5-10.8)
[2017-08-01 14:00] LABS: BUN/Creatinine Ratio 19.3 (8-20); Blood Urea Nitrogen 16 mg/dL (6-24); C Reactive Protein 3.05 mg/L (< 5.00); CO2 Carbon Dioxide 25 mmol/L (22-32); Calcium 9.5 mg/dL (8.6-10.3); Chloride 106 mmol/L (101-111); EGFR African American 86.7 (>60); EGFR Non-African American 67.4 (>60); Glucose 82 mg/dL (70-100); Sodium 138 mmol/L (133-145)
[2017-08-01 14:02] LABS: Anion Gap 7 mmol/L (2-11)
[2017-08-01 14:37] LABS: Erythrocyte Sed Rate 13 mm/Hr (0-40)
--- NOTE | 2017-08-02 13:27 | UC ---
Progress - Progress Note Progress Note: CALL PATIENT. NO SIGNIFICANT ACUTE CHNAGES IN CBC/CMP/CRP . F/U PCP IS WORSE.
== END 2017-08-01 11:43 | disposition home or self-care (01) ==
LOC: UCCORT 09:25
DX: L08.9 Local infection of the skin and subcutaneous tissue, unspecified (principal); I10 Essential (primary) hypertension; J44.9 Chronic obstructive pulmonary disease, unspecified; E11.9 Type 2 diabetes mellitus without complications; Z95.810 Presence of automatic (implantable) cardiac defibrillator; Z91.030 Bee allergy status; Z88.2 Allergy status to sulfonamides; Z77.22 Contact with and (suspected) exposure to environmental tobacco smoke (acute) (chronic)
CPT/HCPCS: 36415; 80048; 85025; 85652; 86140; 99212; G0463

== ENCOUNTER 2017-08-16 09:08 | Day surgery (SDC) | payer MEDICARE ==
[~2017-08-16 09:08] MED LIST: Acetaminophen TAB* 325 MG PO ONE; Buffered Lidocaine 0.9% SYRIN* 5 ML/SYR SYRINGE INTRADERM ONE
[2017-08-16] MEDS ORDERED: ceFAZolin 2 GM PREMIX (*) 2 GM/50 ML BAG IVPB ONE (09:12)
[2017-08-16] MEDS ORDERED: Acetaminophen TAB* 325 MG ONE (09:12)
[2017-08-16] MEDS ORDERED: Buffered Lidocaine 0.9% SYRIN* 5 ML/SYR SYRINGE ONE (09:12)
[2017-08-16] MEDS ORDERED: Bupivacaine 0.5% SDV PF* 30 ML VIAL ONE (10:13)
[2017-08-16] MEDS ORDERED: Lidocaine 2% PF* 10 ML AMP ONE (10:13)
[2017-08-16] MEDS ORDERED: Scopolamine 1.5 mg* PATCH TRANSDERM PRN (10:25)
[2017-08-16] MEDS ORDERED: Ondansetron INJ* 2 MG/ML VIAL IV PRN (10:25)
[2017-08-16] MEDS ORDERED: oxyCODONE TAB* 5 MG TAB PO PRN (10:25)
[2017-08-16] MEDS ORDERED: HYDROmorphone INJ* 1 MG/ML CARPUJECT SYRINGE IV PRN (10:25)
[2017-08-16] MEDS ORDERED: Levalbuterol 0.63MG/3ML NEB* UNIT OF USE INH PRN (10:25)
[2017-08-16] MEDS ORDERED: fentaNYL* 50 MCG/ML 2 ML VIAL (100 MCG VIAL) IV PRN (10:25)
[2017-08-16] MEDS ORDERED: Midazolam* 1 MG/ML 2 ML VIAL (2 MG) ONE (10:28)
[2017-08-16] MEDS ORDERED: fentaNYL* 50 MCG/ML 2 ML VIAL (100 MCG VIAL) ONE (10:28)
[2017-08-16] MEDS ORDERED: Propofol* 10 MG/ML 20 ML BTL IV PUSH ONE (10:29)
[2017-08-16] MEDS ORDERED: Lidocaine 2% PF * 5 ML VIAL ONE (10:29)
[2017-08-16 13:34] VITALS: BP 160/95
--- NOTE | 2017-08-17 08:32 | OP ---
DATE OF OPERATION: 08/16/17 - [facility] DATE OF : 43 ATTENDING SURGEON: Jorje Arteaga MD ANESTHESIOLOGIST: Margo Nunez MD ANESTHESIA: MAC PRE-OP DIAGNOSIS: Left toe inclusion cyst, DIP joint. POST-OP DIAGNOSIS: Left toe inclusion cyst, DIP joint. OPERATIVE PROCEDURE: Excision of cyst, left second toe. DESCRIPTION OF PROCEDURE: The patient was taken to the operating room where MAC was performed with an ankle Esmarch. We made a longitudinal incision over the dorsal aspect of the DIP joint of the left second toe. This was lateral to the extensor tendon. I cut down directly through the chronic callous ulcer in this area, which is a millimeter in diameter. We ellipticized this area the track down to the subcutaneous tissue. We did not identify any deep cystic change or abnormality of the joint capsule. The track of the surrounding soft tissues were sent to pathology. We irrigated thoroughly closing the skin then with interrupted 4-0 nylon sutures and a compression dressing applied. [id number]/CPS #: [id number] MTDD
[2017-08-19] MEDS ORDERED: Scopolomine PATCH Remove* 1 NOTE MISC PATCH OFF ONE (10:26)
== END 2017-08-16 13:30 | disposition home or self-care (01) ==
LOC: OR 09:08
PROVIDERS: ATTEND Orthopaedic Surgery
DX: M67.472 Ganglion, left ankle and foot (principal); I10 Essential (primary) hypertension; J44.9 Chronic obstructive pulmonary disease, unspecified; E11.9 Type 2 diabetes mellitus without complications; F41.9 Anxiety disorder, unspecified; Z88.2 Allergy status to sulfonamides; Z88.5 Allergy status to narcotic agent; E78.00 Pure hypercholesterolemia, unspecified; Z79.82 Long term (current) use of aspirin; Z95.0 Presence of cardiac pacemaker; K21.9 Gastro-esophageal reflux disease without esophagitis
CPT/HCPCS: 88304; A9270-GY; J0690; J2001; J2250; J2704; J3010

== ENCOUNTER 2017-11-16 10:56 | Emergency (ER) | payer MEDICARE ==
[2017-11-16 12:25] VITALS: BP 136/78
--- NOTE | 2017-11-16 12:38 | UC ---
Throat Pain/Nasal Keyur HPI - HPI Summary HPI Summary: 72 y/o female presents to the urgent care care c/o runny nose with clear nasal discharge and PATE with Rt side sinus and RT ear pressure for the past 3 days. PATE is 4/10. Pt has not taking anything to alleviate symptoms. Pt denies fever, SOB , cough, sore throat, abdominal pain, N/V/D " - History of Current Complaint Chief Complaint: UCRespiratory Stated Complaint: SINUS COMPLAINT Time Seen by Provider: 11/16/17 12:34 Hx Obtained From: Patient Hx Last Menstrual Period: n/a Onset/Duration: Gradual Onset, Lasting Days - 3 days, Still Present, Worse Since - today Severity: Moderate Pain Intensity: 4 Pain Scale Used: 0-10 Numeric Cough: None Associated Signs & Symptoms: Positive: Sinus Discomfort, Nasal Discharge. Negative: Fever Related History: Seasonal Allergies - Epiglottits Risk Factors Epiglottis Risk Factors: Negative - Allergies/Home Medications Allergies/Adverse Reactions: Allergies Allergy/AdvReac Type Severity Reaction Status Date / Time Sulfa Antibiotics Allergy Intermediate Rash Verified 08/16/17 09:33 Codeine Allergy Unknown Unknown Verified 08/16/17 09:33 Reaction Details Bee Venom Allergy Difficulty Verified 08/16/17 09:33 Breathing/Wheezing Diltiazem [From Cartia XT] Allergy Hives Verified 11/16/17 12:28 Formaldehyde Allergy Unknown Verified 08/16/17 09:33 Reaction Details ENVIRONMENTAL Allergy Unknown Uncoded 08/16/17 09:33 Reaction Details hayfever Allergy Unknown Uncoded 08/16/17 09:33 Reaction Details yellow gold Allergy SKIN TURNS Uncoded 08/16/17 09:33 GREEN Home Medications: Home Medications Cholecalciferol TAB* [Vitamin D TAB*] 1,000 unit PO DAILY 11/16/17 [History Confirmed 11/16/17] Clindamycin 1% TOPICAL(NF) [Cleocin-T 1% TOPICAL(NF)] 1 % EX BID 11/16/17 [ History Confirmed 11/16/17] Fexofenadine HCl [Wal-Fex Allergy 12 Hour] 60 mg PO DAILY 11/16/17 [History Confirmed 11/16/17] Ondansetron TAB* [Zofran 4 MG Tab*] 4 mg PO Q8H PRN 11/16/17 [History Confirmed 11/16/17] Promethazine TAB* [Phenergan Tab*] 25 mg PO Q6H PRN 11/16/17 [History Confirmed 11/16/17] Triamcinolone 0.1% CREAM (NF) [Kenalog 0.1% Cream (NF)] 1 applic .SEE ORDER BID 11/16/17 [History Confirmed 11/16/17] PMH/Surg Hx/FS Hx/Imm Hx Previously Healthy: Yes Endocrine History: Diabetes, Dyslipidemia Other Endocrine History: eczema Cardiovascular History: Hypertension, Pacemaker/ICD Respiratory History: COPD, Asthma Other GI/ History: diverticulitis - Surgical History Surgical History: Yes Surgery Procedure, Year, and Place: 3 C-SECTIONS,TOTAL HYSTERECTOMY, GALLBLADDER ,HERNIA,CATARACTS. TONSILLECTOMY - as a child. pacemaker. APPENDECTOMY WITH - Family History Known Family History: Positive: Cardiac Disease, Hypertension, Diabetes - Social History Occupation: Retired Lives: With Family Alcohol Use: Rare Substance Use Type: None Smoking Status (MU): Never Smoked Tobacco Have You Smoked in the Last Year: No Household Exposure Type: Cigarettes - Immunization History Most Recent Influenza Vaccination: 07/2017 Most Recent Tetanus Shot: unknown Most Recent Pneumonia Vaccination: pneumovac and prevnar Review of Systems Constitutional: Negative Skin: Negative Eyes: Negative ENT: Nasal Discharge, Sinus Congestion, Sinus Pain/Tenderness Respiratory: Negative Cardiovascular: Negative Gastrointestinal: Negative Genitourinary: Negative Motor: Negative Neurovascular: Negative Musculoskeletal: Negative Neurological: Headache Psychological: Negative Is Patient Immunocompromised?: No All Other Systems Reviewed And Are Negative: Yes Physical Exam Triage Information Reviewed: Yes Vital Signs: Initial Vital Signs Temp 98.3 F 11/16/17 12:21 Pulse 62 11/16/17 12:21 Resp 20 11/16/17 12:21 BP 136/78 11/16/17 12:21 Pulse Ox 98 11/16/17 12:21 - Additional Comments Vitals: reviewed General: Well developed,female well-nourished patient with NAD. Head and face: Normocephalic and atraumatic, Positive tenderness over the frontal and maxillary sinuses.. Eyes: PERRLA, EOMI x 2. Normal conjunctiva. watery eye discharge. ENT: Ears and TM with normal limits. Nose: with yellowish discharge and erythematous mucosa. Pharynx with erythema , no exudate. Neck: Supple, no JVD, no carotid bruits and no lymphadenopathy. Lungs: clear, no rales, no rhonchi, no wheezes. CVS: RRR, S1 and S2 present no murmurs or gallops appreciated. Abdomen: soft nontender with positive bowel sounds. Extremities: no edema noted. Neuro: WNL. Skin: warm and dry Throat Pain/Nasal Course/Dx - Course Course Of Treatment: 72 y/o female presents to the urgent care care c/o runny nose with clear nasal discharge and PATE with Rt side sinus and RT ear pressure for the past 3 days. PATE is 4/10. Pt has not taking anything to alleviate symptoms. Pt denies fever, SOB, cough, sore throat, abdominal pain, N/V/D. Hx obtained. Pt with sinusitis on examination. Influenza A&B ordered: result: result negative. Pt RX Tylenol PO, flonase and Loratadine PO PO to alleviates symptoms.Advisd to avoid allergens. Pt advised to rest, increase fluid intake, eat well and avoid strenuous exercise. If symptoms do not improve or worsen advised to return to the urgent care or f/u with her PCP for further evaluation and treatment. Pt understood and agreed with plan of care. - Differential Dx/Diagnosis Differential Diagnosis/HQI/PQRI: Influenza, Laryngitis, Otitis Media, Pharyngitis, Sinusitis, URI Provider Diagnoses: 1- Acute rhinosinusitis Discharge - Discharge Plan Condition: Stable Disposition: HOME Prescriptions: Acetaminophen TAB* [Tylenol TAB*] 650 mg PO Q6H PRN #20 tab PRN Reason: Headache Fluticasone NASAL SPRAY 50MCG* [Flonase NASAL SPRAY 50MCG*] 2 spray BOTH NARES DAILY #1 btl Loratadine & Pseudoephedrine [Loratadine-D 12Hr] 1 tab PO DAILY #10 tab Patient Education Materials: Rhinosinusitis (ED) Referrals: Kvng Mendiola MD [Primary Care Provider] - 3 Days Additional Instructions: 1- Please increase fluid intake and rest. use a humidifier at night time. Take the Tylenol PO as directed to alleviate headache 2-Use Flonase as directed to help drain fluid. Also buy saline drops to clear sinuses 3-Take Claritin PO to alleviates sinus congestion 4-Return to the clinic or PCP if symptoms do not improve in 3 days for further management and treatment
== END 2017-11-16 13:32 | disposition home or self-care (01) ==
LOC: UCCORT 10:56
DX: J01.90 Acute sinusitis, unspecified (principal); E11.9 Type 2 diabetes mellitus without complications; E78.5 Hyperlipidemia, unspecified; L30.9 Dermatitis, unspecified; I10 Essential (primary) hypertension; Z95.0 Presence of cardiac pacemaker; J44.9 Chronic obstructive pulmonary disease, unspecified; K57.92 Diverticulitis of intestine, part unspecified, without perforation or abscess without bleeding; Z90.710 Acquired absence of both cervix and uterus; Z90.49 Acquired absence of other specified parts of digestive tract; Z88.5 Allergy status to narcotic agent; Z88.2 Allergy status to sulfonamides; Z91.030 Bee allergy status; Z77.22 Contact with and (suspected) exposure to environmental tobacco smoke (acute) (chronic)
CPT/HCPCS: 87502; 99212; G0463

== ENCOUNTER 2018-05-16 07:03 | Emergency (ER) | payer MEDICARE ==
[2018-05-16 07:24] VITALS: BP 143/72
--- NOTE | 2018-05-16 07:25 | ED ---
Lower Extremity - HPI Summary HPI Summary: 73 yo F C/O left leg pain. Started in March 2018. Initially lle. Now has spread up to low back in the left sciatic distribution. Occasional tingling. No weakness. No difficulty controlling bowel or bladder. No acute trauma. No fevers. Patient is wondering if it is sciatica but, is also concerned if there may be a DVT. - History of Current Complaint Stated Complaint: PAIN IN LT LEG Time Seen by Provider: 05/16/18 07:10 Hx Obtained From: Patient Hx Last Menstrual Period: n/a Onset/Duration: Weeks Severity Currently: Mild Timing: Constant Associated Signs And Symptoms: Negative: Swelling, Redness, Bruising, Fever, Weakness Aggravating Factor(s): Movement, Weight Bearing Alleviating Factor(s): Rest Able to Bear Weight: Yes - Allergies/Home Medications Allergies/Adverse Reactions: Allergies Allergy/AdvReac Type Severity Reaction Status Date / Time bee venom protein (honey bee) Allergy Severe Difficulty Verified 05/16/18 07:34 Breathing diltiazem Allergy Intermediate Hives Verified 05/16/18 07:34 Sulfa (Sulfonamide Allergy Intermediate Rash Verified 05/16/18 07:31 Antibiotics) codeine Allergy Unknown Unknown Verified 05/16/18 07:32 Reaction Details formeldahyde Allergy Unknown Unknown Uncoded 05/16/18 07:34 Reaction Details ENVIRONMENTAL Allergy Unknown Uncoded 08/16/17 09:33 Reaction Details hayfever Allergy Unknown Uncoded 08/16/17 09:33 Reaction Details yellow gold Allergy SKIN TURNS Uncoded 08/16/17 09:33 GREEN Home Medications: Home Medications Metoprolol Jarvis/Hydrochlorothiaz [Metoprolol Succinate ER/H 25-12.5 mg] 1 tab PO 05/16/18 [History] PMH/Surg Hx/FS Hx/Imm Hx Previously Healthy: No Endocrine/Hematology History: Denies: Hx Diabetes Cardiovascular History: Reports: Hx Hypercholesterolemia, Hx Hypertension - ON MEDICATION FOR, Hx Pacemaker/ICD - DR. SMITH AND SHAMEKA FOLLOWS, Other Cardiovascular Problems/Disorders - HX OF LEFT VENTRICLE INSUFF PUMPING- PACEMAKER PLACED 2013 Denies: Hx Angina, Hx Coronary Artery Disease, Hx Myocardial Infarction, Hx Valvular Heart Disease Respiratory History: Reports: Hx Asthma - ROUTINE AND PRN NEBULIZER FOR, Hx Chronic Obstructive Pulmonary Disease (COPD) - "mild" GI History: Reports: Hx Gastroesophageal Reflux Disease - ON MEDICATION FOR, Hx Hiatal Hernia, Other GI Disorders - ISCHEMIC COLITIS//HX OF DIVERTICULITIS-LAST 03/2017 History: Denies: Hx Dialysis, Hx Kidney Stones, Hx Renal Disease Musculoskeletal History: Reports: Hx Arthritis - "WHOLE BODY", Other Musculoskeletal History - SCIATICA Denies: Hx Osteoporosis Sensory History: Reports: Hx Cataracts, Hx Contacts or Glasses - GLASSES Denies: Hx Hearing Aid Opthamlomology History: Reports: Hx Cataracts, Hx Contacts or Glasses - GLASSES Neurological History: Reports: Hx Transient Ischemic Attacks (TIA), Other Neuro Impairments/Disorders - ACOUSTIC NEUROMA-CYBER KNIFE [id number] Psychiatric History: Reports: Hx Anxiety - PRN MEDICATION FOR Denies: Hx Panic Disorder - Cancer History Cancer Type, Location and Year: 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 TONSILLECTOMY - as a child. pacemaker. APPENDECTOMY WITH Hx Anesthesia Reactions: Yes - GENERAL- SLOW TO WAKE UP Infectious Disease History: Denies: Hx Clostridium Difficile, Hx Hepatitis, Hx Human Immunodeficiency Virus (HIV), Hx of Known/Suspected MRSA, Hx Shingles, Hx Tuberculosis, Hx Known/ Suspected VRE, Hx Known/Suspected VRSA, History Other Infectious Disease, Traveled Outside the [place] in Last 30 Days - Family History Known Family History: Positive: Cardiac Disease, Hypertension, Diabetes - Social History Alcohol Use: Rare Substance Use Type: Reports: None Smoking Status (MU): Never Smoked Tobacco Have You Smoked in the Last Year: No Review of Systems Negative: Fever Eyes: Negative ENT: Negative Positive: Other - Has pacemaker Respiratory: Negative Gastrointestinal: Negative Genitourinary: Negative Positive: Other - No weakness Psychological: Normal All Other Systems Reviewed And Are Negative: Yes Physical Exam Triage Information Reviewed: Yes Vital Signs Reviewed: Yes Appearance: Positive: Well-Appearing Skin: Positive: Warm, Skin Color Reflects Adequate Perfusion Eyes: Positive: Normal, EOMI, BRYANT Neck: Positive: Supple Respiratory/Lung Sounds: Positive: Clear to Auscultation Cardiovascular: Positive: Normal, RRR Musculoskeletal: Positive: Pain @ - Reports pain at Left buttock, left lateral leg all the way down to left lateral foot Neurological: Positive: Normal, Sensory/Motor Intact, Alert, Oriented to Person Place, Time, Reflexes Intact, Other - Normal sensation both legs. Strength 5/5. NL patellar reflexes. No calf tenderness to palpation. Lower Extremity Course/Dx - Course Course Of Treatment: Discussed US results. No neuro deficit. Patient has Naproxsen at home. Rx Tramadol. F/U PMD; recheck sooner if worse. - Diagnoses Provider Diagnoses: Left sided sciatica, Lumbar radiculopathy Discharge - Sign-Out/Discharge Documenting (check all that apply): Patient Departure - Discharge Plan Condition: Stable Disposition: HOME Prescriptions: traMADol TAB* [Ultram*] 50 mg PO Q6HR PRN #20 tab MDD 4 PRN Reason: Pain Patient Education Materials: Sciatica (ED), Lumbar Radiculopathy (ED), Lower Back Exercises (ED) Referrals: Stephon Dixon DO [Primary Care Provider] - Additional Instructions: FOLLOW UP WITH YOUR PRIMARY CARE DOCTOR. GET RECHECKED FOR ANY WORSENING OF YOUR CONDITION; PAIN, WEAKNESS, NUMBNESS, DIFFICULTY CONTROLLING BOWEL OR BLADDER OR QUESTIONS OR CONCERNS. - Billing Disposition and Condition Condition: STABLE Disposition: Home
--- NOTE | 2018-05-16 08:18 | RAD ---
Indication: Left lower extremity pain. Duplex Doppler sonography of the deep venous system of the left lower extremity deep venous system was performed. Bilaterally the common femoral veins appear patent and compressible. Left proximal greater saphenous vein, proximal deep femoral vein, femoral vein, popliteal vein, posterior tibial veins and peroneal veins appear patent and compressible. IMPRESSION: NO EVIDENCE OF DEEP VENOUS THROMBOSIS IS IDENTIFIED.
== END 2018-05-16 08:32 | disposition home or self-care (01) ==
LOC: UCCORT 07:03
DX: M54.32 Sciatica, left side (principal); M54.16 Radiculopathy, lumbar region; Z86.73 Personal history of transient ischemic attack (TIA), and cerebral infarction without residual deficits; F41.9 Anxiety disorder, unspecified; Z85.828 Personal history of other malignant neoplasm of skin
CPT/HCPCS: 99212; G0463

== ENCOUNTER 2019-02-13 17:08 | Emergency (ER) | payer MEDICARE ==
[2019-02-13 17:55] VITALS: BP 130/86
--- NOTE | 2019-02-13 18:02 | UC ---
Respiratory Complaint HPI - HPI Summary HPI Summary: Ill since last week. She just finished a Zpak yesterday and doesn't feel any better. She has a productive cough of schneider sputum. Non-smoker, she has a history of asthma and COPD and has been using her nebulizer at home. - History of Current Complaint Chief Complaint: UCRespiratory Stated Complaint: CONGESTION,COUGH Time Seen by Provider: 02/13/19 17:57 Hx Obtained From: Patient Hx Last Menstrual Period: n/a ?: No Onset/Duration: Gradual Onset Timing: Intermittent Episodes Severity Initially: Moderate Severity Currently: Mild Pain Intensity: 0 Character: Cough: Productive Aggravating Factors: Nothing Alleviating Factors: Bronchodilator Associated Signs And Symptoms: Positive: Wheezing, URI, Nasal Congestion Related History: Seasonal Allergies - Risk Factors Pulmonary Embolism Risk Factors: Negative Cardiac Risk Factors: Negative Pseudomonas Risk Factors: Negative Tuberculosis Risk Factors: Negative - Allergies/Home Medications Allergies/Adverse Reactions: Allergies Allergy/AdvReac Type Severity Reaction Status Date / Time bee venom protein (honey bee) Allergy Severe Difficulty Verified 02/13/19 17:45 Breathing diltiazem Allergy Intermediate Hives Verified 02/13/19 17:45 Sulfa (Sulfonamide Allergy Intermediate Rash Verified 02/13/19 17:45 Antibiotics) codeine Allergy Unknown Unknown Verified 02/13/19 17:45 Reaction Details formeldahyde Allergy Unknown Unknown Uncoded 02/13/19 17:45 Reaction Details ENVIRONMENTAL Allergy Unknown Uncoded 02/13/19 17:45 Reaction Details hayfever Allergy Unknown Uncoded 02/13/19 17:45 Reaction Details yellow gold Allergy SKIN TURNS Uncoded 02/13/19 17:45 GREEN PMH/Surg Hx/FS Hx/Imm Hx Previously Healthy: Yes Respiratory History: COPD, Asthma - Surgical History Surgical History: Yes Surgery Procedure, Year, and Place: 3 C-SECTIONS,TOTAL HYSTERECTOMY, GALLBLADDER , R InguinalHERNIA,CATARACTS. TONSILLECTOMY - as a child, left breast lump removed-benign. pacemaker. APPENDECTOMY WITH . Hx Acoustic Neuroma- Radiation-Cyber knife - Family History Known Family History: Positive: Cardiac Disease, Hypertension, Diabetes - Social History Alcohol Use: Rare Substance Use Type: None Smoking Status (MU): Never Smoked Tobacco Have You Smoked in the Last Year: No Household Exposure Type: Cigarettes - Immunization History Most Recent Influenza Vaccination: 07/2017 Most Recent Tetanus Shot: unknown Most Recent Pneumonia Vaccination: pneumovac and prevnar Review of Systems All Other Systems Reviewed And Are Negative: Yes ENT: Positive: Nasal Discharge, Sinus Congestion Respiratory: Positive: Cough - Productive cough of schneider sputum Cardiovascular: Positive: Negative Gastrointestinal: Positive: Negative Genitourinary: Positive: Negative Is Patient Immunocompromised?: No Physical Exam Triage Information Reviewed: Yes Appearance: Well-Appearing, No Pain Distress, Well-Nourished Vital Signs: Initial Vital Signs Temp 98.1 F 02/13/19 17:45 Pulse 64 02/13/19 17:45 Resp 16 02/13/19 17:45 BP 130/86 02/13/19 17:45 Pulse Ox 97 02/13/19 17:45 Vital Signs Reviewed: Yes Eye Exam: Normal ENT Exam: Normal Neck exam: Normal Respiratory Exam: Normal Respiratory: Positive: Lungs clear, Normal breath sounds, No respiratory distress, No accessory muscle use, Wheezing - Pt has a mildly tight cough with mild wheezing on forced expiration only. Cardiovascular: Positive: RRR, No Murmur, Pulses Normal, Brisk Capillary Refill Musculoskeletal Exam: Normal Neurological Exam: Normal Psychological Exam: Normal Skin Exam: Normal Respiratory Course/Dx - Course Course Of Treatment: CXR:negative as read by myself and Dr. Quiroga. Discussed with Dr. Quiroga and will start on Prednisone and a recheck later in the week with PCP (already has a scheduled appt) - Differential Dx/Diagnosis Provider Diagnosis: Bronchitis Discharge - Sign-Out/Discharge Documenting (check all that apply): Patient Departure All imaging exams completed and their final reports reviewed: No - Discharge Plan Condition: Fair Disposition: HOME Prescriptions: predniSONE [Prednisone 20 MG TAB] 20 mg PO DAILY 9 Days #18 tablet Patient Education Materials: Acute Bronchitis (ED) Referrals: Stephon Dixon DO [Primary Care Provider] - Additional Instructions: Continue to use your nebulizer as directed. Follow up with your doctor as scheduled for a recheck. - Billing Disposition and Condition Condition: FAIR Disposition: Home
--- NOTE | 2019-02-14 09:48 | UC ---
- Progress Note Progress Note: Patient Name: TRISH KIDD Medical Record#: [id number] Ordering Physician: Krysten Blue NP Acct.#: [id number] : 1945 Age: 74 Sex: F [place] [facility] [place]: 02/13/191800 ADM Status: DEP ER Order Information: CHEST PA & LAT 2 VWS Accession Number: [id number] CPT: 35523 INDICATION: Cough. COMPARISON: Comparison is made with a prior study from September 09, 2018. TECHNIQUE: Dual-energy PA and lateral views of the chest were obtained. FINDINGS: The heart is within normal limits in size. Mediastinal and hilar contours appear within normal limits. There is a dual-chamber transvenous pacemaker present. The lungs are hyperinflated and clear. No pleural effusion is seen. IMPRESSION: FINDINGS CONSISTENT WITH COPD, NO EVIDENCE FOR ACUTE DISEASE. R0 Preliminary Imaging Read R0 <Electronically signed by Manas Ashton MD in OV> 02/14/19732 Dictated By: Manas Ashton MD Dictated Date/Time: 02/14/19732 Transcribed Date/Time: 02/14/19731 Copy to: CC:Krysten Blue NP; Stephon Dixon DO; Ross Quiroga MD Imaging - [facility] Imaging - [facility] [address] [address] ph [phone] ph ([phone]) ph ([phone]) This report is only to be considered final once signed by the Provider(s) as displayed in the "<Electronically Signed by >" field (s). Absence of a signature indicates the report is in a draft status and still needs to be finalized. In the event this document was created by someone other than the signing Provider, the individual initiating the document will be listed in the "Entered by:" or "Dictated by:" lombardi. 1 of 1 Course/Dx - Diagnoses Provider Diagnoses: Bronchitis Discharge - Sign-Out/Discharge Documenting (check all that apply): Post-Discharge Follow Up All imaging exams completed and their final reports reviewed: Yes - Discharge Plan Condition: Fair Disposition: HOME Prescriptions: predniSONE [Prednisone 20 MG TAB] 20 mg PO DAILY 9 Days #18 tablet Patient Education Materials: Acute Bronchitis (ED) Referrals: Stephon Dixon DO [Primary Care Provider] - Additional Instructions: Continue to use your nebulizer as directed. Follow up with your doctor as scheduled for a recheck. - Billing Disposition and Condition Condition: FAIR Disposition: Home
== END 2019-02-13 19:01 | disposition home or self-care (01) ==
LOC: UCCORT 17:08
DX: J40 Bronchitis, not specified as acute or chronic (principal); J44.9 Chronic obstructive pulmonary disease, unspecified; Z88.2 Allergy status to sulfonamides; Z88.5 Allergy status to narcotic agent; Z88.8 Allergy status to other drugs, medicaments and biological substances
CPT/HCPCS: 71046; 99212; G0463

== ENCOUNTER 2019-06-10 14:46 | Emergency (ER) | payer MEDICARE ==
--- NOTE | 2019-06-10 15:10 | UC ---
Ear Complaint HPI - HPI Summary HPI Summary: Patient is a 74 year old female , who present today to the urgent care with left ear pain that she started noticing today. Points inferior to the ear where her most pain ,with some fullness. Denies any hearing loss. Feels that as a sharp pain. Had some chills today but denies any fever. She took Aleve with some relief. No sore throat or cough. Her blood pressure slightly high in the clinic today but she denies any chest pain or shortness of breath. - History of Current Complaint Stated Complaint: LEFT EAR CONCERN Time Seen by Provider: 06/10/19 15:08 Hx Obtained From: Patient Hx Last Menstrual Period: n/a - Allergies/Home Medications Allergies/Adverse Reactions: Allergies Allergy/AdvReac Type Severity Reaction Status Date / Time bee venom protein (honey bee) Allergy Severe Difficulty Verified 06/10/19 15:09 Breathing diltiazem Allergy Intermediate Hives Verified 06/10/19 15:09 Sulfa (Sulfonamide Allergy Intermediate Rash Verified 06/10/19 15:09 Antibiotics) codeine Allergy Unknown Unknown Verified 06/10/19 15:09 Reaction Details formeldahyde Allergy Unknown Unknown Uncoded 06/10/19 15:09 Reaction Details ENVIRONMENTAL Allergy Unknown Uncoded 06/10/19 15:09 Reaction Details hayfever Allergy Unknown Uncoded 06/10/19 15:09 Reaction Details yellow gold Allergy SKIN TURNS Uncoded 06/10/19 15:09 GREEN PMH/Surg Hx/FS Hx/Imm Hx - Additional Past Medical History Additional PMH: Past Medical History : Allergies, diabetes mellitus, hypertension, diverticulitis, constipation, COPD, pacemaker, Hyperlipidemia Past Surgical History: , hysterectomy, cholecystectomy, appendectomy, acoustic neuroma-,gamma knife radiation Family History : non contributory Social History : Occasional alcohol, non smoker, no drug use. Previously Healthy: Yes - Surgical History Surgical History: Yes Surgery Procedure, Year, and Place: 3 C-SECTIONS,TOTAL HYSTERECTOMY, GALLBLADDER , R InguinalHERNIA,CATARACTS. TONSILLECTOMY - as a child, left breast lump removed-benign. pacemaker. APPENDECTOMY WITH . Hx Acoustic Neuroma- Radiation-Cyber knife - Family History Known Family History: Positive: Cardiac Disease, Hypertension, Diabetes - Social History Alcohol Use: Rare Substance Use Type: None Smoking Status (MU): Never Smoked Tobacco Have You Smoked in the Last Year: No Household Exposure Type: Cigarettes - Immunization History Most Recent Influenza Vaccination: 07/2017 Most Recent Tetanus Shot: unknown Most Recent Pneumonia Vaccination: pneumovac and prevnar Review of Systems All Other Systems Reviewed And Are Negative: Yes Constitutional: Positive: Chills Skin: Positive: Negative Eyes: Positive: Negative ENT: Positive: Ear Ache - Left Respiratory: Positive: Negative. Negative: Cough Cardiovascular: Positive: Negative. Negative: Chest Pain Gastrointestinal: Positive: Negative Genitourinary: Positive: Negative Motor: Positive: Negative Neurovascular: Positive: Negative Musculoskeletal: Positive: Negative Neurological: Positive: Negative Psychological: Positive: Negative Is Patient Immunocompromised?: No Physical Exam - Summary Physical Exam Summary: Physical Exam: Const: Appears well. No signs of apparent distress present. Alert and oriented x 3. Musculo: Walks with a normal gait. Head/Face: Atraumatic, normocephalic on inspection. Eyes: EOMI and PERRLA in both eyes. Conjunctivae clear. No discharge noted ENT: Hearing normal, TM minimally red on the left side. External auditory canal with slight erythema if any on the left side, no exudates noted. Pain with manipulation of tragus. There is mild swelling along with tenderness to palpation inferior to the mastoid. No mastoid tenderness is noted. No tenderness to palpation on maxillary and frontal sinus. No pharyngeal erythema or exudates . Uvula is midline. No cervical or submandibular lymphadenopathy noted. Respiratory: Respirations are unlabored. Lungs clear to auscultation bilaterally, no wheezing , rhonchi or rales noted . CVS: Regular rate and Rhythm, S1S2 normal , no murmurs identified. Extremities: Peripheral circulation is grossly normal. Pulses 2+ Abdomen : Soft non tender , nondistended , Bowel sounds present . No guarding , rebound tenderness or rigidity noted. Skin: No lesions or rash located on the upper extremities or on the lower extremities. Neuro: Cranial nerves II to XII intact, motor and sensory intact. DTR Intact bilaterally. Mood is normal. Affect is normal. Triage Information Reviewed: Yes Vital Signs Reviewed: Yes Ear Complaint Course/Dx - Course Course Of Treatment: During the visit today, we discussed the findings, suspect neck abscess on the left side . Patient needs additional testing, thus ER transfer advised and patient agrees. Report called to the ER provider(Harvey Tsai NP) at [facility] . I advised provider of the history, physical examination, and duration of illness and the need for definitive management. Her will drive her to the ER. - Differential Dx/Diagnosis Provider Diagnosis: Neck abscess Discharge - Sign-Out/Discharge Documenting (check all that apply): Patient Departure All imaging exams completed and their final reports reviewed: No Studies - Discharge Plan Condition: Stable Disposition: HOME-RECOMMEND TO ED Patient Education Materials: Abscess (ED) Referrals: Stephon Dixon DO [Primary Care Provider] - 1 Week Additional Instructions: Please go to the ER for imaging and further management, I have called the report.your blood pressure slightly high in Urgent care today , plan follow up with PCP for better control within 4 weeks - Billing Disposition and Condition Condition: STABLE Disposition: Home-Recommend to ED
[2019-06-10 15:15] VITALS: BP 160/106
== END 2019-06-10 15:39 | disposition home health service (06) ==
LOC: UCCORT 14:46
DX: L02.11 Cutaneous abscess of neck (principal); E11.9 Type 2 diabetes mellitus without complications; I10 Essential (primary) hypertension; Z95.0 Presence of cardiac pacemaker
CPT/HCPCS: 99212; G0463

== ENCOUNTER 2019-12-07 19:23 | Emergency (ER) | payer MEDICARE | END 2019-12-07 19:27 | disposition left against medical advice (07) | LOC: UCCORT 19:23 | DX: Z53.21 Procedure and treatment not carried out due to patient leaving prior to being seen by health care provider (principal) ==

== ENCOUNTER 2019-12-09 08:55 | Emergency (ER) | payer MEDICARE ==
[2019-12-09 09:13] VITALS: BP 115/65
--- NOTE | 2019-12-09 09:34 | UC ---
Respiratory Complaint HPI - HPI Summary HPI Summary: Pt presents with c/o worsenign cough, sob, wheezing, chest and nasal congestion X 3 weeks. Pt has hx of copd and has a pace maker. - History of Current Complaint Chief Complaint: UCGeneralIllness Stated Complaint: CONGESTION COUGH EARS Time Seen by Provider: 12/09/19 09:09 Hx Obtained From: Patient Hx Last Menstrual Period: n/a ?: No Onset/Duration: Gradual Onset, Lasting Weeks, Still Present, Worse Since - onset Timing: Constant Severity Initially: Mild Severity Currently: Moderate Pain Intensity: 4 Character: Cough: Nonproductive Aggravating Factors: Exertion, Deep Breaths, Recumbent Position Alleviating Factors: Nothing Associated Signs And Symptoms: Positive: Wheezing, URI, Nasal Congestion - Risk Factors Pulmonary Embolism Risk Factors: Negative Cardiac Risk Factors: CAD Pseudomonas Risk Factors: Chronic Lung Disease Tuberculosis Risk Factors: Negative - Allergies/Home Medications Allergies/Adverse Reactions: Allergies Allergy/AdvReac Type Severity Reaction Status Date / Time bee venom protein (honey bee) Allergy Severe Difficulty Verified 12/09/19 09:04 Breathing diltiazem Allergy Intermediate Hives Verified 12/09/19 09:04 Sulfa (Sulfonamide Allergy Intermediate Rash Verified 12/09/19 09:04 Antibiotics) codeine Allergy Unknown Unknown Verified 12/09/19 09:04 Reaction Details formeldahyde Allergy Unknown Unknown Uncoded 12/09/19 09:04 Reaction Details ENVIRONMENTAL Allergy Unknown Uncoded 12/09/19 09:04 Reaction Details hayfever Allergy Unknown Uncoded 12/09/19 09:04 Reaction Details yellow gold Allergy SKIN TURNS Uncoded 12/09/19 09:04 GREEN Home Medications: Home Medications Desloratadine 2.5 mg PO DAILY 12/09/19 [History Confirmed 12/09/19] Famotidine TAB* [Pepcid 20 MG TAB*] 40 mg PO BID 12/09/19 [History Confirmed 06/20] Hydrochlorothiazide TAB* [Hydrodiuril TAB*] 50 mg PO DAILY 12/09/19 [History Confirmed 12/09/19] Levalbuterol 1.25MG/0.5ML NEB* [Xopenex 1.25 MG/0.5 ML NEB.BRAN*] 1.25 mg INH Q4H PRN 12/09/19 [History Confirmed 12/09/19] Tiotropium CAPSULE (NF) [Spiriva CAPSULE (NF)] 1 cap.inh INH DAILY 12/09/19 [ History Confirmed 12/09/19] Triamcinolone NASAL SPRAY* [Nasacort Aq Nasal [place]*] 1 puff NASAL DAILY [History Confirmed 12/09/19] diPHENhydraMINE PO* [Benadryl PO 25 MG TAB*] 25 mg PO Q6H PRN 12/09/19 [History Confirmed 12/09/19] PMH/Surg Hx/FS Hx/Imm Hx Previously Healthy: Yes Cardiovascular History: Cardiac Disease, Pacemaker/ICD Respiratory History: COPD - Surgical History Surgical History: Yes Surgery Procedure, Year, and Place: 3 C-SECTIONS,TOTAL HYSTERECTOMY, GALLBLADDER , R InguinalHERNIA,CATARACTS. TONSILLECTOMY - as a child, left breast lump removed-benign. pacemaker. APPENDECTOMY WITH . Hx Acoustic Neuroma- Radiation-Cyber knife - Family History Known Family History: Positive: Cardiac Disease, Hypertension, Diabetes - Social History Occupation: Retired Lives: With Family Alcohol Use: Rare Substance Use Type: None Smoking Status (MU): Never Smoked Tobacco Have You Smoked in the Last Year: No Household Exposure Type: Cigarettes - Immunization History Most Recent Influenza Vaccination: 07/2017 Most Recent Tetanus Shot: unknown Most Recent Pneumonia Vaccination: pneumovac and prevnar Vaccination Up to Date: No Review of Systems All Other Systems Reviewed And Are Negative: Yes Constitutional: Positive: Negative Skin: Positive: Negative Eyes: Positive: Negative ENT: Positive: Sinus Congestion Respiratory: Positive: Shortness Of Breath, Cough Cardiovascular: Positive: Negative Gastrointestinal: Positive: Negative Genitourinary: Positive: Negative Motor: Positive: Negative Neurovascular: Positive: Negative Musculoskeletal: Positive: Negative Neurological: Positive: Negative Psychological: Positive: Negative Is Patient Immunocompromised?: No Physical Exam Triage Information Reviewed: Yes Vital Signs: Initial Vital Signs Temp 97.1 F 12/09/19 09:03 Pulse 62 12/09/19 09:03 Resp 22 12/09/19 09:03 BP 115/65 12/09/19 09:03 Pulse Ox 95 12/09/19 09:03 Vital Signs Reviewed: Yes Eye Exam: Normal ENT: Positive: Nasal congestion Dental Exam: Normal Neck exam: Normal Respiratory: Positive: Decreased breath sounds, Wheezing Cardiovascular Exam: Normal Cardiovascular: Positive: Other: - has pace maker Musculoskeletal Exam: Normal Neurological Exam: Normal Psychological Exam: Normal Skin Exam: Normal Respiratory Course/Dx - Differential Dx/Diagnosis Differential Diagnosis/HQI/PQRI: Bronchitis, Exacerbation Of COPD, Influenza Provider Diagnosis: COPD exacerbation, Pneumonia Discharge ED - Sign-Out/Discharge Documenting (check all that apply): Patient Departure All imaging exams completed and their final reports reviewed: No Studies - Discharge Plan Condition: Stable Disposition: HOME Prescriptions: Benzonatate CAP* [Tessalon 100 MG CAP*] 100 - 200 mg PO Q8H PRN #30 cap PRN Reason: Cough DOXYcycline CAP(*) [DOXYcycline 100MG CAP(*)] 100 mg PO Q12H #20 cap predniSONE 10 mg TAB [Deltasone 10 MG TAB*] 30 mg PO DAILY #18 tab Patient Education Materials: Pneumonia (ED) Referrals: Stephon Dixon DO [Primary Care Provider] - As Soon As Possible Additional Instructions: Please follow up with your PCP as needed. If your symptoms worsen, please seek care at the closest emergency room. Please note, that the medication prednisone , will elevate your blood glucose levels temporarily and you should monitor them more frequently for better control. - Billing Disposition and Condition Condition: STABLE Disposition: Home
== END 2019-12-09 09:50 | disposition home or self-care (01) ==
LOC: UCCORT 08:55
DX: J44.1 Chronic obstructive pulmonary disease with (acute) exacerbation (principal); J18.9 Pneumonia, unspecified organism; Z91.030 Bee allergy status; Z88.2 Allergy status to sulfonamides; Z88.8 Allergy status to other drugs, medicaments and biological substances; Z88.5 Allergy status to narcotic agent; Z91.09 Other allergy status, other than to drugs and biological substances; Z95.0 Presence of cardiac pacemaker
CPT/HCPCS: 99212; G0463

== ENCOUNTER 2020-02-14 08:13 | Emergency (ER) | payer MEDICARE ==
[2020-02-14 08:26] VITALS: BP 136/76
--- NOTE | 2020-02-14 08:42 | UC ---
Skin Complaint HPI - HPI Summary HPI Summary: concern about tick bite of left lower leg x 1 day patient removed a small lesion from her left leg , thinking it was as tick . she brought the "Tick" to the office, denies any rash, no fever, no chills, no body or joint pain - History of Current Complaint Chief Complaint: UCBiteInjury Time Seen by Provider: 02/14/20 08:29 Stated Complaint: TICK BITE Hx Obtained From: Patient Hx Last Menstrual Period: n/a Onset/Duration: Gradual Onset, Lasting Days - 1, Resolved Timing: Constant Onset Severity: Mild Current Severity: None Pain Intensity: 0 Location: Discrete - left lowe leg Aggravating Factor(s): Nothing Alleviating Factor(s): Nothing Associated Signs & Symptoms: Positive: Negative Related History: Insect Bite/Sting - Allergy/Home Medications Allergies/Adverse Reactions: Allergies Allergy/AdvReac Type Severity Reaction Status Date / Time bee venom protein (honey bee) Allergy Severe Difficulty Verified 02/14/20 08:26 Breathing diltiazem Allergy Intermediate Hives Verified 02/14/20 08:26 Sulfa (Sulfonamide Allergy Intermediate Rash Verified 02/14/20 08:26 Antibiotics) codeine Allergy Unknown Unknown Verified 02/14/20 08:26 Reaction Details formeldahyde Allergy Unknown Unknown Uncoded 02/14/20 08:26 Reaction Details ENVIRONMENTAL Allergy Unknown Uncoded 02/14/20 08:26 Reaction Details hayfever Allergy Unknown Uncoded 02/14/20 08:26 Reaction Details yellow gold Allergy SKIN TURNS Uncoded 02/14/20 08:26 GREEN Home Medications: Home Medications ALPRAZolam TAB* [Xanax TAB*] 1 tab PO QID PRN 02/01/14 [History Confirmed ] Aspirin EC TAB* [Ecotrin EC Low Dose 81 MG*] 1 tab PO QPM 02/01/14 [History Confirmed 02/14/20] Ripley-3 Fatty Acids (Nf) [Fish Oil (NF)] 1 tab PO BID 12/02/15 [History Confirmed 02/14/20] Polyethylene Glycol 3350* [Miralax (17 GM DOSE RAFAELA)] 17 gm PO DAILY 12/02/15 [ History Confirmed 02/14/20] Diphenoxylat/Atrop 2.5-0.025M* [Lomotil TAB*] 1 tab PO QID PRN 04/08/16 [ History Confirmed 02/14/20] Pravastatin Sodium [Pravachol] 40 mg PO BEDTIME 04/08/16 [History Confirmed ] metFORMIN* [Glucophage 500 MG TAB *] 500 mg PO TID 02/09/17 [History Confirmed 02/14/20] Budesonide/Formote 80/4.5(NF) [Symbicort 80/4.5 (NF)] 2 puff INH BID 08/10/17 [ History Confirmed 02/14/20] Meclizine TAB* [Antivert 12.5 TAB*] 25 mg PO BID 08/10/17 [History Confirmed ] Naproxen [Naproxen 500 mg] 500 mg PO BID PRN 08/10/17 [History Confirmed ] Clindamycin 1% TOPICAL(NF) [Cleocin-T 1% TOPICAL(NF)] 1 % EX BID 11/16/17 [ History Confirmed 02/14/20] Ondansetron TAB* [Zofran 4 MG Tab*] 4 mg PO Q8H PRN 11/16/17 [History Confirmed 02/14/20] Triamcinolone 0.1% CREAM (NF) [Kenalog 0.1% Cream (NF)] 1 applic .SEE ORDER BID 11/16/17 [History Confirmed 02/14/20] Metoprolol Jarvis/Hydrochlorothiaz [Metoprolol ER-Hctz 25-12.5 mg] 100 tab PO DAILY 05/16/18 [History Confirmed 02/14/20] Benzonatate CAP* [Tessalon 100 MG CAP*] 100 - 200 mg PO Q8H PRN #30 cap [Rx Confirmed 02/14/20] Desloratadine 2.5 mg PO DAILY 12/09/19 [History Confirmed 02/14/20] Famotidine TAB* [Pepcid 20 MG TAB*] 40 mg PO BID 12/09/19 [History Confirmed ] Hydrochlorothiazide TAB* [Hydrodiuril TAB*] 50 mg PO DAILY 12/09/19 [History Confirmed 02/14/20] Levalbuterol 1.25MG/0.5ML NEB* [Xopenex 1.25 MG/0.5 ML NEB.BRAN*] 1.25 mg INH Q4H PRN 12/09/19 [History Confirmed 02/14/20] Tiotropium CAPSULE (NF) [Spiriva CAPSULE (NF)] 1 cap.inh INH DAILY 12/09/19 [ History Confirmed 02/14/20] Triamcinolone NASAL SPRAY* [Nasacort Aq Nasal [place]*] 1 puff NASAL DAILY [History Confirmed 02/14/20] diPHENhydraMINE PO* [Benadryl PO 25 MG TAB*] 25 mg PO Q6H PRN 12/09/19 [History Confirmed 02/14/20] PMH/Surg Hx/FS Hx/Imm Hx - Additional Past Medical History Additional PMH: cancer : CLL Cardiovascular History: Hypertension Respiratory History: COPD, Asthma - Surgical History Surgical History: Yes Surgery Procedure, Year, and Place: 3 C-SECTIONS,TOTAL HYSTERECTOMY, GALLBLADDER , R InguinalHERNIA,CATARACTS. TONSILLECTOMY - as a child, left breast lump removed-benign. pacemaker. APPENDECTOMY WITH . Hx Acoustic Neuroma- Radiation-Cyber knife - Family History Known Family History: Positive: Cardiac Disease, Hypertension, Diabetes - Social History Alcohol Use: Rare Substance Use Type: None Smoking Status (MU): Never Smoked Tobacco Have You Smoked in the Last Year: No Household Exposure Type: Cigarettes - Immunization History Most Recent Influenza Vaccination: 07/2017 Most Recent Tetanus Shot: unknown Most Recent Pneumonia Vaccination: pneumovac and prevnar Vaccination Up to Date: No Review of Systems All Other Systems Reviewed And Are Negative: Yes Constitutional: Negative: Fever, Chills, Fatigue Skin: Positive: Negative. Negative: Rash Musculoskeletal: Negative: Arthralgia, Myalgia Neurological/Mental Status: Positive: Negative Is Patient Immunocompromised?: No Physical Exam Triage Information Reviewed: Yes Appearance: Well-Appearing, No Pain Distress, Well-Nourished Vital Signs: Initial Vital Signs Temp 97.5 F 02/14/20 08:20 Pulse 73 02/14/20 08:20 Resp 18 02/14/20 08:20 BP 136/76 02/14/20 08:20 Pulse Ox 96 02/14/20 08:20 Vital Signs Reviewed: Yes Eye Exam: Normal Eyes: Positive: Conjunctiva Clear ENT: Positive: Normal ENT inspection, Hearing grossly normal, Pharynx normal Neck exam: Normal Respiratory Exam: Normal Respiratory: Positive: Chest non-tender, Lungs clear, Normal breath sounds Cardiovascular: Positive: RRR, No Murmur, Pulses Normal Skin: Positive: Other - small scab left lower leg , no tick bite, ? insect bite Course/Dx - Diagnoses Provider Diagnosis: Insect bite of left leg Discharge ED - Sign-Out/Discharge Documenting (check all that apply): Patient Departure All imaging exams completed and their final reports reviewed: No Studies - Discharge Plan Condition: Stable Disposition: HOME Patient Education Materials: Insect Bite or Sting (ED) Referrals: Stephon Dixon DO [Primary Care Provider] - Additional Instructions: no tick bites noted , no need for antibiotics small scab was noted but not a tick bite keep the wound clean follow up as needed - Billing Disposition and Condition Condition: STABLE Disposition: Home
== END 2020-02-14 08:49 | disposition home or self-care (01) ==
LOC: UCCORT 08:13
DX: S80.862A Insect bite (nonvenomous), left lower leg, initial encounter (principal); W57.XXXA Bitten or stung by nonvenomous insect and other nonvenomous arthropods, initial encounter; Y92.9 Unspecified place or not applicable; I10 Essential (primary) hypertension; J44.9 Chronic obstructive pulmonary disease, unspecified; Z79.82 Long term (current) use of aspirin; Z79.899 Other long term (current) drug therapy; Z91.030 Bee allergy status; Z88.5 Allergy status to narcotic agent; Z88.2 Allergy status to sulfonamides; Z88.8 Allergy status to other drugs, medicaments and biological substances; Z91.09 Other allergy status, other than to drugs and biological substances
CPT/HCPCS: 99212; G0463

== ENCOUNTER 2024-02-27 12:53 | Inpatient (IN) ==
[2024-02-27] MEDS: NS 0.9% 1000 ml BAG 1,000 ML IV ONE (13:18)
[2024-02-27 13:32] LABS: Hematocrit 41.5 % (35-45); Hemoglobin 14.2 g/dL (11.5-14.3); Mean Corpuscular Hemoglobin 32.1 pg (27-33); Mean Corpuscular Hgb Conc 34.3 g/dL (31-36); Mean Corpuscular Volume 93.5 fL (80-97); Platelet Count 295 10^3/uL (150-450); Red Blood Count 4.44 10^6/uL (3.63-4.92); Red Cell Distribution Width 14.3 % (12-17)
[2024-02-27] MEDS: Ondansetron 4 mg VIAL 2 MG/ML 2 ml VIAL IV ONE (13:33)
[2024-02-27 13:50] LABS: Albumin 3.8 g/dL (3.2-5.2); Albumin/Globulin Ratio 1.7 (1-3); Calcium 9.1 mg/dL (8.6-10.3); Creatinine, Serum 1.23 mg/dL (0.51-0.95); Globulin 2.3 g/dL (2-4); Potassium 4.7 mmol/L (3.5-5.0); Total Bilirubin 3.3 mg/dL (0.2-1.0); Total Protein 6.1 g/dL (6.4-8.9); eGFR CKD-EPI 44.4 (>60)
[2024-02-27] MEDS: Iodixanol (CONTRAST) 320 MG/ML 100 ML SDV IV ONE (13:54)
[2024-02-27 14:02] LABS: ABS Eosinophils 0.2 10^3/uL (0.0-0.5); ABS Lymphocytes 1.2 10^3/uL (1.0-4.8); ABS Monocytes 2.5 10^3/uL (0.0-0.9); ABS Neutrophils 14.1 10^3/uL (1.5-7.6); ABS Nucleated RBC 0.02 10^3/ul; Eosinophil % 0.9 %; Lymphocyte % 6.9 %; Nucleated Red Blood Cells % 0.1 %/100WBC (0.0-0.8)
[2024-02-27] MEDS: Piperacillin/Tazobac 3.375 BAG 3.375 GM/100 ML BAG IV ONE (14:18)
[2024-02-27] MEDS: Lactated Ringers 1000 ml BAG 1,000 ML IV ONE ×3 (14:20→22:56)
[2024-02-27] MEDS ORDERED: Ondansetron 4 mg VIAL 2 MG/ML 2 ml VIAL IV PRN (17:48)
[2024-02-27] MEDS ORDERED: Dextrose 50% Syringe 50 ml 25 GM/50 ML SYRINGE IV PUSH PRN (18:46)
[2024-02-27] MEDS: cefTRIAXone 2 gm/50 mL D5W 2 GM/50 ML BAG IV SCH (18:50)
[2024-02-27] MEDS: Enoxaparin 40 MG/0.4 ML SYR SUBCUT SCH (19:52)
[2024-02-27] MEDS: metroNIDAZOLE IV 500 MG/100ML 500 MG/100 ML BAG IVPB SCH (19:54)
[2024-02-27 21:06] LABS: Direct Bilirubin 0.5 mg/dL (0.03-0.18); Indirect Bilirubin 2.8 mg/dL (0.3-1.0)
[2024-02-27] MEDS ORDERED: Lactated Ringers 1000 ml BAG 1,000 ML IV ONE (22:00)
[2024-02-27] MEDS: Polyethylene Glycol 3350 17 GM PACKET PO PRN (22:20)
[2024-02-27] MEDS: Ondansetron 4 mg VIAL 2 MG/ML 2 ml VIAL IV PRN (23:01)
[2024-02-28 05:21] LABS: Hematocrit 36.7 % (35-45); Hemoglobin 12.7 g/dL (11.5-14.3); Mean Corpuscular Hemoglobin 32.4 pg (27-33); Mean Corpuscular Hgb Conc 34.7 g/dL (31-36); Mean Corpuscular Volume 93.4 fL (80-97); Platelet Count 238 10^3/uL (150-450); Red Blood Count 3.93 10^6/uL (3.63-4.92); Red Cell Distribution Width 14.5 % (12-17); White Blood Count 13.3 10^3/uL (3.8-11.8)
[2024-02-28 05:28] LABS: ABS Eosinophils 0.1 10^3/uL (0.0-0.5); ABS Lymphocytes 0.9 10^3/uL (1.0-4.8); ABS Monocytes 1.9 10^3/uL (0.0-0.9); ABS Neutrophils 10.4 10^3/uL (1.5-7.6); Eosinophil % 0.8 %; Lymphocyte % 6.6 %
[2024-02-28 05:40] LABS: Albumin/Globulin Ratio 1.7 (1-3); Calcium 8.2 mg/dL (8.6-10.3); Creatinine, Serum 1.02 mg/dL (0.51-0.95); Globulin 1.8 g/dL (2-4); Magnesium 1.9 mg/dL (1.9-2.7); Potassium 3.9 mmol/L (3.5-5.0); Total Bilirubin 1.7 mg/dL (0.2-1.0); Total Protein 4.8 g/dL (6.4-8.9); eGFR CKD-EPI 55.6 (>60)
[2024-02-28] MEDS: Senna TAB 8.6 mg TAB PO PRN (07:56)
[2024-02-28] MEDS: Magnesium Sulfate IV 1GM/100ML 1 GM/100 ML BAG IV ONE (09:15)
[2024-02-28] MEDS: Polyethylene Glycol 3350 17 GM PACKET PO SCH (10:42)
[2024-02-28] MEDS: Senna TAB 8.6 mg TAB PO SCH (10:42)
[2024-02-28] MEDS: KCL 10 MEQ/50 ML IVPREMIX 10 MEQ/50 ML BAG IV ONE (13:35)
[2024-02-28] MEDS: Potassium EFFERVES 25 meq TAB PO ONE (14:29)
[2024-02-28] MEDS: Lactated Ringers 1000 ml BAG 1,000 ML IV ONE (16:48)
[2024-02-28] MEDS: NS 0.9% 1000 ml BAG 1,000 ML IV SCH (19:00)
[2024-02-28 20:26] LABS: Urine Appearance Clear; Urine Bilirubin Negative (Negative); Urine Blood Trace (Negative); Urine Color Light-Yellow; Urine Glucose 4+ (>=1000 mg/dL) (Negative); Urine Ketones 1+ (Negative); Urine Nitrite Negative (Negative); Urine Protein Trace (Negative); Urine Urobilinogen Negative (Negative); Urine pH 5.5 (5.0-8.0)
[2024-02-29 05:47] LABS: ABS Eosinophils 0.3 10^3/uL (0.0-0.5); ABS Lymphocytes 0.8 10^3/uL (1.0-4.8); ABS Monocytes 1.5 10^3/uL (0.0-0.9); ABS Neutrophils 7.8 10^3/uL (1.5-7.6); ABS Nucleated RBC 0.01 10^3/ul; Eosinophil % 2.6 %; Hemoglobin 12.6 g/dL (11.5-14.3); Lymphocyte % 7.6 %; Mean Corpuscular Hemoglobin 31.8 pg (27-33); Mean Corpuscular Hgb Conc 33.2 g/dL (31-36); Mean Corpuscular Volume 95.5 fL (80-97); Mean Platelet Volume 7.3 fL (7.5-11.2); Nucleated Red Blood Cells % 0.1 %/100WBC (0.0-0.8); Platelet Count 234 10^3/uL (150-450); Red Blood Count 3.98 10^6/uL (3.63-4.92); Red Cell Distribution Width 14.6 % (12-17); White Blood Count 10.4 10^3/uL (3.8-11.8)
[2024-02-29 06:03] LABS: Calcium 7.6 mg/dL (8.6-10.3); Creatinine, Serum 1.06 mg/dL (0.51-0.95); Magnesium 2.1 mg/dL (1.9-2.7); Potassium 3.7 mmol/L (3.5-5.0); eGFR CKD-EPI 53.1 (>60)
[2024-02-29] MEDS: Polyethylene Glycol 3350 17 GM PACKET PO SCH (09:24)
[2024-02-29] MEDS: KCL 10 MEQ/50 ML IVPREMIX 10 MEQ/50 ML BAG IV SCH (09:24)
[2024-02-29 11:12] LABS: C Reactive Protein 209.61 mg/L (<8.01)
[2024-02-29] MEDS: Potassium Chlor 10 meq TAB PO ONE (15:07)
[2024-02-29] MEDS: HYDROcodone/ACETAMIN 5/325 mg TAB PO PRN (22:40)
[2024-03-01 05:26] LABS: Hematocrit 35.3 % (35-45); Hemoglobin 11.9 g/dL (11.5-14.3); Mean Corpuscular Hemoglobin 31.5 pg (27-33); Mean Corpuscular Hgb Conc 33.8 g/dL (31-36); Mean Corpuscular Volume 93.3 fL (80-97); Mean Platelet Volume 7.3 fL (7.5-11.2); Platelet Count 270 10^3/uL (150-450); Red Blood Count 3.78 10^6/uL (3.63-4.92); Red Cell Distribution Width 14.5 % (12-17); White Blood Count 8.6 10^3/uL (3.8-11.8)
[2024-03-01 05:44] LABS: Calcium 7.9 mg/dL (8.6-10.3); Creatinine, Serum 0.9 mg/dL (0.51-0.95); Potassium 3.6 mmol/L (3.5-5.0); eGFR CKD-EPI 64.6 (>60)
[2024-03-01] MEDS: Potassium EFFERVES 25 meq TAB PO ONE (09:48)
[2024-03-01] MEDS: Potassium Chlor 20 meq TAB.ER PO SCH (09:49)
[2024-03-02 06:38] LABS: Calcium 7.7 mg/dL (8.6-10.3); Creatinine, Serum 0.77 mg/dL (0.51-0.95); Magnesium 1.8 mg/dL (1.9-2.7); Potassium 3.7 mmol/L (3.5-5.0); eGFR CKD-EPI 77.9 (>60)
[2024-03-02] MEDS: Magnesium Sulfate IV 1GM/100ML 1 GM/100 ML BAG IV ONE (07:53)
[2024-03-02] MEDS: Potassium Chlor 20 meq TAB.ER PO SCH (07:54)
[2024-03-02 14:19] VITALS: BP 150/66
== END 2024-03-02 15:00 | disposition home or self-care (01) | DRG 392 ==
LOC: ED 12:53 → EDHOLD 12:53 → SUATTDRO 16:02 → SSU 16:47
PROVIDERS: ADMIT Student in an Organized Health Care Education/Training Program; ATTEND Hospitalist